=== PATIENT | male | born 1950 | race Caucasian/White ===

== ENCOUNTER 2022-03-11 16:23 | Emergency (ER) | payer MEDICARE, BC, SELFPAY ==
[2022-03-11 16:30] VITALS: BP 167/106; PULSE 85; RESP 20; TEMP 36.6; O2SAT 96; BMI 31.4
[2022-03-11 17:04] VITALS: BP 153/104; PULSE 80; RESP 18; O2SAT 94
--- NOTE | 2022-03-11 17:16 | ED.GENADULT ---
[facility] - General Adult General Date Seen: 03/11/22 Chief complaint: Altered Mental Status Stated complaint: possible slurred speach Time Seen by Provider: 03/11/22 16:28 Source: patient History of Present Illness HPI narrative: Patient is a 71-year-old male who has a history of stroke in October of this year. This gave him a facial droop and speech problems, both of which have largely resolved at this time. He has been working with speech therapy to improve his speech, and he says he is largely back to normal although his enunciation is not quite what it was before his stroke. He says that he was worked up to determine an etiology for his stroke and none was entirely determined. He has had monitoring for atrial fibrillation and has been told that none has been seen. Currently he is on a baby aspirin daily. He is here because he says for the past several weeks his has been concerned that his speech seems not as good. He does note that his is generally a worrier. He says that neither his children nor he is at all concerned about his speech. There has not been an acute change in his speech. He has not had any difficulties with word finding, has not had any current weakness or numbness, difficulties with balance or gait. 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 This passed quickly and he was back to normal. He does note that he has a tingling sensation in his 2nd 3rd and 4th fingers on the left hand, this is been present for a number of years. He is unaware of any diagnosis of carpal tunnel. He also notes that every once in a while he has an approximately 1 minute episode of dizziness where he feels vertigo or imbalance. Does tell me that he had a diagnosis of Meniere's where he had intense vertigo and abrupt hearing loss in the left ear a number of years ago. His is out of town, and apparently became very concerned while she was gone that he needed to get evaluated, so to alleviate her concern he came into the emergency department. He does not actually have any complaints or concerns of his own. He denies headache, nausea or vomiting. He has not had any chest pain, palpitations, shortness of breath. Has not had any lightheadedness or fainting. Denies current vertigo or dizziness. Denies current numbness or weakness, aside from the above-mentioned paresthesias in those left fingers which is always present. 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 Related Data Home Medications Medication Instructions Recorded Confirmed ascorbic acid (vitamin C) 1,000 mg 1 g PO DAILY 01/31/22 01/31/22 tablet aspirin 81 mg tablet,delayed 81 mg PO QDAY 01/31/22 01/31/22 release (Adult Aspirin Regimen) calcium carbonate 500 mg calcium mg PO .Bedtime 01/31/22 01/31/22 (1,250 mg) tablet magnesium oxide mg PO .Bedtime 01/31/22 01/31/22 melatonin 1 mg tablet,extended 1 tab PO .Bedtime 01/31/22 01/31/22 release metoprolol succinate 100 mg mg PO DAILY 01/31/22 01/31/22 tablet,extended release 24 hr multivitamin with iron 1 tab PO QDAY 01/31/22 01/31/22 nitroglycerin 0.4 mg sublingual 0.4 mg sublingual PRN 01/31/22 01/31/22 tablet rosuvastatin 40 mg tablet 20 mg PO Q OTHER DAY 01/31/22 01/31/22 Previous Rx's Medication Instructions Recorded COVID-19 antigen test (COVID-19 #4 ea 01/19/22 At-Home Test kit) Allergies Allergy/AdvReac Type Severity Reaction Status Date / Time rosuvastatin Allergy Mild Cannot Verified 01/31/22 08:41 take generic Crestor Tea tree oil Allergy Mild Rash Uncoded 01/31/22 08:41 Review of Systems Status of ROS: Reports: 10 or more systems reviewed and unremarkable except as noted in History and below [facility] Medical History History of methicillin resistant Staphylococcus aureus infection (2019) Surgical History History of colonoscopy (11/07/17) History of coronary artery stent placement (10/26/07) 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 Four children. He he is sexually active. Just starting to do more biking after taking much of the winter and spring off. He generally bikes for 90 min. he is hoping to do a [employer] bike trip later this summer. HABITS: No tobacco or recreational drug use reported. Alcohol use is about 2 drinks per month. Hx tobacco use Smoking Status: Former smoker How often do you have a drink containing alcohol: monthly or less AUDIT-C Alcohol total score: 1 Non-prescribed substance use: denies use Exam Narrative: Exam Narrative: Vital signs as noted above. In general, an alert, well-appearing patient. Head: Normocephalic, atraumatic. Eyes: Pupils are equal reactive. Extraocular movements are full. Conjunctivae are normal. ENT: Mucous membranes are moist. Tongue is midline. Neck: Supple without lymphadenopathy. No stridor. No bruits. Heart: Regular rate and rhythm. No murmur or rub. Lungs: Clear bilaterally. No increased work of breathing, crackles or wheezes. Abdomen: Soft and nontender. No organomegaly. Extremities: Well perfused. No edema. No calf tenderness. Pulses intact. Neurologic: Patient is alert and oriented to person and place. Speech is fluent, no dysarthria. Face is symmetric. Moves all extremities equally. Cerebellar function is intact by finger-nose testing. Fine motor testing is intact in both hands. Affect: Normal. Skin: Warm and dry. Well perfused. Const: Vital Signs, click to edit/add: Vital Signs - 24 hr 03/11/22 16:30 03/11/22 17:04 Temperature 97.9 F Pulse Rate [Pulse Oximeter] 85 80 Respiratory Rate 20 18 Blood Pressure [Le ft Upper Arm] 167/106 H 153/104 H Pulse Oximetry 96 94 Oxygen Delivery Me thod Room Air Documenting provider has reviewed patient's vital signs: yes Course Course Hospital Course: I had a long conversation with the patient about his medical history and recent symptoms. I think his very brief episodes of vertigo are unlikely to represent stroke given their short duration and isolated description of vertigo. These are more likely to be peripheral vertigo. Regarding the symptoms he had in his left hand last week, is more difficult to know what this represents. Again given how brief these symptoms were, I find it less likely that this was related to TIA, and more likely that is related to probably a peripheral nerve problem given his longstanding history of tingling in his fingers on his hand. I suspect he may have undiagnosed median nerve palsy. However, given his history of stroke, I certainly think that it is reasonable to have him follow-up with Neurology, and in the interim, I suggested that instead of a baby aspirin he takes a full-size aspirin. I do not think there is any harm at all in making that switch. We discussed whether not we should pursue any testing today. I think there is simply no benefit to doing a CT scan of the head as I do not think it will at any information to our workup. He is seen here on a weekend when I am not able to do an MRI, and in any case I am not certain that an MRI is indicated on an emergent basis given that he is asymptomatic at this time. I discussed that we could certainly do an EKG and blood work if he felt that either he or his would be reassured by some component of evaluation here, but he would just as soon not pursue any workup, and he thinks his would feel reassured just by him being evaluated. Again given that he does not have any symptoms, that his children are not at all worried by his speech, that I do not tack picker any abnormalities in his speech whatsoever, I think it is reasonable to let him go home. He has a call in to his neurology clinic and they are supposed to call him back on Sunday, which I think is reasonable. I have stressed to him that if he has any symptoms in the meantime, I would want him to return to the emergency department. Vital Signs Vital signs: Initial Vital Signs Temperature 97.9 F 03/11/22 16:30 Temperature Source Temporal Artery Scan 03/11/22 16:30 Pulse Rate 85 03/11/22 16:30 Respiratory Rate 20 03/11/22 16:30 Blood Pressure 167/106 H 03/11/22 16:30 Blood Pressure Mean 126 03/11/22 16:30 Blood Pressure Position Supine 03/11/22 16:30 Pulse Oximetry 96 08/20/22 16:30 Oxygen Delivery Method 03/11/22 16:30 Vital Signs Temperature 97.9 F 03/11/22 16:30 Pulse Rate 85 03/11/22 16:30 Respiratory Rate 20 03/11/22 16:30 Blood Pressure 167/106 H 03/11/22 16:30 Pulse Oximetry 96 03/11/22 16:30 Oxygen Delivery Method 03/11/22 16:30 Temperature 97.9 F 03/11/22 16:30 Pulse Rate 80 03/11/22 17:04 Respiratory Rate 18 03/11/22 17:04 Blood Pressure 153/104 H 03/11/22 17:04 Pulse Oximetry 94 03/11/22 17:04 Oxygen Delivery Method 03/11/22 16:30 Discharge Plan Discharge Clinical Impression: Suspected condition not found, History of stroke Patient Disposition: Home, Self-Care Condition: Stable Additional Instructions: Just to be on the safe side, increase from a baby aspirin to a full aspirin daily. Follow-up with Neurology by phone on Sunday as planned, further follow-up with them as recommended. Return to the ER at any time for new acute neurologic symptoms. Prescriptions: No Action melatonin 1 mg tablet extended release 1 tab PO .Bedtime magnesium oxide 250 mg magnesium tablet PO .Bedtime metoprolol succinate 100 mg tablet extended release 24 hr PO DAILY aspirin [Adult Aspirin Regimen] 81 mg tablet,delayed release (DR/EC) 81 mg PO QDAY rosuvastatin 40 mg tablet 20 mg PO Q OTHER DAY Rx Instructions: 1/2 tab po on odd days, and 1 tab po on even days calcium carbonate 500 mg calcium (1,250 mg) tablet PO .Bedtime ascorbic acid (vitamin C) 1,000 mg tablet 1 g PO DAILY multivitamin with iron Tablet 1 tab PO QDAY nitroglycerin 0.4 mg tablet, sublingual 0.4 mg sublingual PRN Rx Instructions: PRN CHEST PAIN, up to 3 doses. (DME) COVID-19 At-Home Test Kit See Rx Instructions .Route Qty: 4 2RF Rx Instructions: As directed Follow Up/Referrals: Holger Isaac MD [Primary Care Provider] - Stand Alone Forms: MyHealth Info Instructions
== END 2022-03-11 17:24 | disposition home or self-care (01) ==
LOC: ED 17:15
PROVIDERS: Emergency Provider Emergency Medicine; PCP Family Medicine
DX: R47.81 Slurred speech (principal); Z03.89 Encounter for observation for other suspected diseases and conditions ruled out; Z86.73 Personal history of transient ischemic attack (TIA), and cerebral infarction without residual deficits
CPT/HCPCS: 99282; 99284

== ENCOUNTER 2023-01-02 07:56 | Outpatient (CLI) | payer MEDICARE, BC, SELFPAY | END 2023-01-02 07:57 | disposition home or self-care (01) | PROVIDERS: PCP Family Medicine; Referring Provider Family Medicine; Visit Provider Family Medicine | DX: E87.5 Hyperkalemia (principal); E83.52 Hypercalcemia; D72.829 Elevated white blood cell count, unspecified | CPT/HCPCS: 80048 ==

== ENCOUNTER 2023-01-22 13:43 | Emergency (ER) | payer MEDICARE, BC, SELFPAY ==
[2023-01-22] VITALS (14 sets, daily range): BP systolic 121–162; BP diastolic 69–100; PULSE 57–96; RESP 16; TEMP 36.9; O2SAT 92–96; BMI 32.8
--- NOTE | 2023-01-22 14:09 | CRLHL7_ITS ---
For Patients: As a result of the Century Cures Act, medical imaging exams and procedure reports are released immediately into your electronic medical record. You may view this report before your referring provider. If you have questions, please contact your health care provider. Indication: MEMORY LOSS Technique: Noncontrast sagittal T1 weighted, axial FLAIR, axial T2 weighted, and axial diffusion weighted sequences are provided. Comparison: 09/06/2017 MRI Findings: Chronic lacunar infarcts the right inferior cerebellum. Chronic lacunar infarcts in the bilateral conteh radiata. The ventricles, sulci and gyri are normal size, shape and contour for age. The midline structures are centrally located with no evidence of shift. There are no suspicious intra or extra-axial fluid collections. No region of restricted diffusion. Expected flow voids in the cavernous carotids and basilar artery. Mild polypoid mucosal thickening in the left maxillary sinus. Mild mucosal thickening in the left ethmoid air cells. Impression: 1. No acute intracranial abnormality. 2. Chronic lacunar infarcts in the right inferior cerebellum, increased compared to the prior exam, and new small bilateral conteh radiata lacunar infarcts. 3. Mild parenchymal volume loss. Dictated by Avelino Herrera MD @ 01/22/2023 4:13:21 PM (Electronically Signed)
--- NOTE | 2023-01-22 14:12 | ED_ITS ---
HPI - General Adult General Chief complaint: Neuro Symptoms/Altered Deficit Stated complaint: possible stroke Time Seen by Provider: 01/22/23 13:47 Source: patient and family Mode of arrival: ambulatory Limitations: no limitations History of Present Illness HPI narrative: 72-year-old male presenting to the ED at the request of his for confusion. Patient had a stroke in October of 2021 which presented with confusion and slurred speech. Today approximately 2 hours ago he came home from work and presented with confusion when he arrived home. states that he could remember things that they had talked about previously. He did know what date was. He can not remember what they had plan to do this evening. He states that everything is back to normal now and he is not currently experiencing any symptoms. However, when asked what the day it was in triage he did say that it was Sunday, , today is Sunday. He denies headaches, blurry vision or changes in his hearing. He is hard of hearing. He denies any chest pain or shortness of breath. No recent traveling or long car rides. He denies abdominal discomfort, chest pain or diaphoresis. No shortness of breath. Denies any focal neurologic deficits including weakness of any extremity, difficulty walking. He states that right before all of this started 2 hours ago, he felt dizzy which he describes as being lightheaded. He denies any vertiginous symptoms. Dizziness has resolved. Related Data Home Medications Medication Instructions Recorded Confirmed ascorbic acid (vitamin C) 1,000 mg 1 g PO DAILY 01/31/22 12/20/22 tablet aspirin 81 mg tablet,delayed 81 mg PO QDAY 01/31/22 12/20/22 release (Adult Aspirin Regimen) calcium carbonate 500 mg calcium mg PO .Bedtime 01/31/22 12/20/22 (1,250 mg) tablet magnesium oxide mg PO .Bedtime 01/31/22 12/20/22 melatonin 1 mg tablet,extended 1 tab PO .Bedtime 01/31/22 12/20/22 release multivitamin with iron 1 tab PO QDAY 01/31/22 12/20/22 nitroglycerin 0.4 mg sublingual 0.4 mg sublingual PRN 01/31/22 12/20/22 tablet rosuvastatin 40 mg tablet 20 mg PO Q OTHER DAY 01/31/22 12/20/22 Previous Rx's Medication Instructions Recorded albuterol sulfate 90 mcg/actuation 2 inh inhalation Q6-8H PRN 12/20/22 aerosol inhaler shortness of breath or wheezing #6.7 grams azithromycin 250 mg tablet See Rx Instructions PO .COMPLEX #6 12/20/22 tabs metoprolol succinate 100 mg 100 mg PO DAILY #90 tabs 01/03/23 tablet,extended release 24 hr Allergies Allergy/AdvReac Type Severity Reaction Status Date / Time rosuvastatin Allergy Mild Cannot Verified 12/20/22 09:00 take generic Crestor Tea tree oil Allergy Mild Rash Uncoded 12/20/22 09:00 Review of Systems Status of ROS: Reports: 10 or more systems reviewed and unremarkable except as noted in History and below [facility] Medical History History of methicillin resistant Staphylococcus aureus infection (2018) ?Z86.14 - Personal history of Methicillin resistant Staphylococcus aureus infection (ICD-10) Surgical History Status post cholecystectomy (2006) ?Z90.49 - Acquired absence of other specified parts of digestive tract (ICD- 10) 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 Four children. He he is sexually active. Just starting to do more biking after taking much of the winter and spring off. He generally bikes for 90 min. he is hoping to do a [employer] bike trip later this summer. HABITS: No tobacco or recreational drug use reported. Alcohol use is about 2 drinks per month. Hx tobacco use Smoking Status: Current every day smoker How often do you have a drink containing alcohol: monthly or less AUDIT-C Alcohol total score: 1 Non-prescribed substance use: denies use Little interest or pleasure in doing things: several days Feeling down, depressed, or hopeless: several days Exam Narrative: Exam Narrative: Well-nourished well-developed patient in no acute distress. Alert and oriented. Answers questions appropriately. Mood and affect are appropriate. Thoughts are goal oriented and rational. No tangential or magical thinking noted. Patient speaks in full sentences without needing to catch their breath. HEENT: Normocephalic atraumatic. Pupils are equally round reactive to light. Extraocular muscles are intact. Conjunctivae are moist without any icterus noted. Moist mucous membranes. Posterior pharynx is normal. Neck is soft without any lymphadenopathy or thyromegaly. No masses are appreciated. Cardiovascular: Heart is regular rate and rhythm S1 and S2 are present without any murmurs. Lungs: Clear to auscultation bilaterally no wheezes rhonchi or rales are appreciated. Patient takes deep breaths without any discomfort. Abdomen: Soft and nontender nondistended with normal bowel sounds. No guarding or rebound. Abdomen is protuberant. Extremities: Bilateral lower extremities are without edema. Normal DP and PT pulses. Skin: Well perfused without any obvious rashes. Strength is 5/5 of the upper and lower extremities. Reflexes are 2+ and symmetric at the knees. Romberg sign is negative. Cranial nerves 3-12 are normal. [id number] is normal. Wljc-[id number] is normal. There is no nystagmus either horizontally or vertically. Gait is normal. NIH score is 0. Const: Vital Signs, click to edit/add: Vital Signs - 24 hr 01/22/23 13:53 01/22/23 15:42 01/22/23 15:43 Temperature 98.5 F Pulse Rate 61 62 Pulse Rate [Pulse Oximeter] 96 Respiratory Rate 16 Blood Pressure 125/70 Blood Pressure [Ri ght Upper Arm] 162/89 H Pulse Oximetry 96 94 93 Oxygen Delivery Me thod Room Air 01/22/23 15:45 01/22/23 15:52 Temperature Pulse Rate 61 58 L Pulse Rate [Pulse Oximeter] Respiratory Rate Blood Pressure 122/69 Blood Pressure [Ri ght Upper Arm] Pulse Oximetry 94 93 Oxygen Delivery Me thod Course Course Hospital Course: CT scan machine is not functioning today, therefore patient went to MRI which was a 12 minute delay from the time it was ordered to when he was able to go in. Given that his symptoms have resolved I think that the delay is acceptable. EKG, read by me, shows normal sinus rhythm with an incomplete right bundle- branch block, pulse 63. Labs were drawn in the meantime- all unremarkable. MRI showing chronic lacunar infarcts, nothing acute to explain his symptoms. His lactate was slightly elevated therefore he was given a L of normal saline. He remained asymptomatic while he was in the ER. I did speak to , stroke neurologist at [facility], recommended increasing daily aspirin and getting an MRA as an outpatient. Differential diagnosis at this time including TIA, transient global amnesia, acute confusion. Vital Signs Vital signs: Initial Vital Signs Temperature 98.5 F 01/22/23 13:53 Temperature Source Temporal Artery Scan 01/22/23 13:53 Pulse Rate 96 01/22/23 13:53 Respiratory Rate 16 01/22/23 13:53 Blood Pressure 162/89 H 01/22/23 13:53 Blood Pressure Mean 113 H 01/22/23 13:53 Pulse Oximetry 96 01/22/23 13:53 Oxygen Delivery Method Room Air 01/22/23 13:53 Vital Signs Temperature 98.5 F 01/22/23 13:53 Pulse Rate 96 01/22/23 13:53 Respiratory Rate 16 01/22/23 13:53 Blood Pressure 162/89 H 01/22/23 13:53 Pulse Oximetry 96 01/22/23 13:53 Oxygen Delivery Method Room Air 01/22/23 13:53 Temperature 98.5 F 01/22/23 13:53 Pulse Rate 58 L 01/22/23 15:52 Respiratory Rate 16 01/22/23 13:53 Blood Pressure 122/69 01/22/23 15:52 Pulse Oximetry 93 01/22/23 15:52 Oxygen Delivery Method Room Air 01/22/23 13:53 Medical Decision Making MDM Narrative Medical decision making narrative: 72-year-old male with an episode of forgetfulness and confusion. Differential diagnoses includes TIA in transient global amnesia. Will increase patient's daily aspirin to 325 mg daily. Have him follow-up primary care this week and we will recommend an MRA to be done as an outpatient. Patient will call the clinic on SundayJanuary 24 to have that set up. Medical Records Medical records reviewed: Yes I reviewed the patient's medical records Lab Data Lab results reviewed: Yes I reviewed the patient's lab results Labs: Lab Results 01/22/23 01/22/23 Range/Units 14:35 16:14 WBC 10.85 (4.50-11.00) K/uL RBC 5.84 (4.30-5.90) m/uL Hgb 17.2 (13.5-17.5) gm/dL Hct 52.5 (37.0-53.0) % MCV 90 (80-100) fL MCH 30 (26-34) pg MCHC 33 (32-36) gm/dL RDW Coeff of Harry 14.5 (11.5-15.5) % Plt Count 463 H (140-440) K/uL Neut % (Auto) 80.7 H (42.0-72.0) % Lymph % (Auto) 7.8 L (20-44) % [place] % (Auto) 5.7 (0.0-11.0) % Eos % (Auto) 4.2 (0.0-7.0) % Baso % (Auto) 0.2 (0.0-3.0) % Neut # (Auto) 8.80 H (1.7-7.0) K/uL Lymph # (Auto) 0.80 L (0.90-2.90) K/uL [place] # (Auto) 0.60 (0.00-0.90) K/UL Eos # (Auto) 0.46 (0.00-0.50) K/uL Baso # (Auto) 0.02 (0.00-0.30) K/uL Sodium 139 (135-149) mmol/L Potassium 4.1 (3.6-5.1) mmol/L Chloride 108 (96-114) mmol/L Carbon Dioxide 21 (20-32) mmol/L BUN 16 (7-30) mg/dL Creatinine 0.7 (0.5-1.5) mg/dL Estimated Creat Clear 72.16 Estimated GFR 99 ml/min Glucose 179 H (60-115) mg/dL Lactate 2.2 H (0.5-1.9) mmol/L Calcium 9.5 (8.4-10.6) mg/dL Total Bilirubin 0.8 (0.1-1.5) mg/dL Direct Bilirubin 0.1 (0.0-0.5) mg/dL AST 38 H (12-35) U/L ALT 33 (4-50) U/L Alkaline Phosphatase 64 (40-150) U/L Troponin I < 0.01 L (0.01-0.04) ng/mL Total Protein 6.4 (6.0-8.3) g/dL Albumin 3.8 (3.3-5.0) g/dL Urine Color Yellow (Yellow) Urine Appearance Clear (Clear) Urine pH 5.5 (5.0-8.5) Ur Specific [place] >= 1.030 (1.000-1.030) Urine Protein 1+ A (Negative) Urine Glucose (UA) Negative (Negative) Urine Ketones Negative (Negative) Urine Blood Negative (Negative) Urine Nitrite Negative (Negative) Urine Bilirubin Negative (Negative) Urine Urobilinogen 0.2 (0.2-1.0) Ur Leukocyte Esterase Negative (Negative) Urine RBC 2-5 A (0-2) Urine WBC 2-5 (0-5) Ur Squamous Epith Cells None (None-Few) Urine Bacteria None (None) POC Troponin I 0.02 (0.01-0.04) ng/ml Imaging Data MR Brain: Attestation: I have reviewed the pertinent imaging results. Radiologist's impression: Noncontrast sagittal T1 weighted, axial FLAIR, axial T2 weighted, and axial diffusion weighted sequences are provided. Comparison: 09/06/2017 MRI Findings: Chronic lacunar infarcts the right inferior cerebellum. Chronic lacunar infarcts in the bilateral conteh radiata. The ventricles, sulci and gyri are normal size, shape and contour for age.? The midline structures are centrally located with no evidence of shift.? There are no suspicious intra or extra-axial fluid collections.? No region of restricted diffusion.? Expected flow voids in the cavernous carotids and basilar artery. Mild polypoid mucosal thickening in the left maxillary sinus. Mild mucosal thickening in the left ethmoid air cells. Impression: 1. No acute intracranial abnormality. 2. Chronic lacunar infarcts in the right inferior cerebellum, increased compared to the prior exam, and new small bilateral conteh radiata lacunar infarcts. 3. Mild parenchymal volume loss. ECG Data Attestation: I personally reviewed and interpreted this ECG as follows: Discharge Plan Discharge Clinical Impression: Acute confusion Patient Disposition: Home, Self-Care Condition: Improved Additional Instructions: Your workup was unremarkable today. Causes of acute confusion and forgetfulness could be signs of a mini-stroke. Because of this is recommended that you increase your daily asked with the 324 mg daily. You should also call Dr. Isaac 1st thing on 01/24/2023 to set up an outpatient Brain MRA scan. The scan looks at the vasculature in the brain and was recommended by the neurologist at [facility]. Return to the ER if symptoms return in certainly if they persist. Prescriptions: No Action melatonin 1 mg tablet extended release 1 tab PO .Bedtime magnesium oxide 250 mg magnesium tablet PO .Bedtime aspirin [Adult Aspirin Regimen] 81 mg tablet,delayed release (DR/EC) 81 mg PO QDAY rosuvastatin 40 mg tablet 20 mg PO Q OTHER DAY Rx Instructions: 1/2 tab po on odd days, and 1 tab po on even days calcium carbonate 500 mg calcium (1,250 mg) tablet PO .Bedtime ascorbic acid (vitamin C) 1,000 mg tablet 1 g PO DAILY multivitamin with iron Tablet 1 tab PO QDAY nitroglycerin 0.4 mg tablet, sublingual 0.4 mg sublingual PRN Rx Instructions: PRN CHEST PAIN, up to 3 doses. azithromycin 250 mg tablet See Rx Instructions PO .COMPLEX Qty: 6 0RF Rx Instructions: For 250 mg dose pack: take 500 mg today (day 1), then 250 mg for 4 days (days 2-5) PO albuterol sulfate 90 mcg/actuation HFA aerosol inhaler 2 inh inhalation Q6-8H PRN (Reason: shortness of breath or wheezing) Qty: 6.7 0RF metoprolol succinate 100 mg tablet extended release 24 hr 100 mg PO DAILY Qty: 90 0RF Follow Up/Referrals: Holger Isaac MD [Primary Care Provider] - Stand Alone Forms: [employer] Info Instructions
[2023-01-22 14:42] LABS: Lactate* 2.2 mmol/L (0.5-1.9)
[2023-01-22 14:46] LABS: Basophils Absolute Auto 0.02 K/uL (0.00-0.30); Basophils Percent Auto 0.2 % (0.0-3.0); Eosinophils Absolute Auto 0.46 K/uL (0.00-0.50); Eosinophils Percent Auto 4.2 % (0.0-7.0); Hematocrit 52.5 % (37.0-53.0); Hemoglobin* 17.2 gm/dL (13.5-17.5); Immature Granulocytes Abs Auto 0.15 K/uL (0.00-0.30); Immature Granulocytes Pct Auto 1.4 %; Lymphocytes Percent Auto 7.8 % (20-44); Mean Corpuscular HGB Conc 33 gm/dL (32-36); Mean Corpuscular Hemoglobin 30 pg (26-34); Mean Corpuscular Volume 90 fL (80-100); Monocytes Percent Auto 5.7 % (0.0-11.0); Neutrophils Percent Auto 80.7 % (42.0-72.0); Platelet Count* 463 K/uL (140-440); RDW Coefficient of Variation % 14.5 % (11.5-15.5); Red Blood Count 5.84 m/uL (4.30-5.90); White Blood Count* 10.85 K/uL (4.50-11.00)
[2023-01-22 14:48] LABS: Slide Review Reflex No
[2023-01-22 14:50] LABS: Troponin, Point-of-Care* 0.02 ng/ml (0.01-0.04)
--- NOTE | 2023-01-22 14:59 | ED.NURSE ---
Patient to MRI at [id number]
[2023-01-22 15:35] LABS: Albumin* 3.8 g/dL (3.3-5.0); Bilirubin Direct* 0.1 mg/dL (0.0-0.5); Bilirubin Total* 0.8 mg/dL (0.1-1.5); Total Protein* 6.4 g/dL (6.0-8.3)
[2023-01-22 15:36] LABS: Alanine Aminotransferase* 33 U/L (4-50); Alkaline Phosphatase* 64 U/L (40-150); Aspartate Amino Transferase* 38 U/L (12-35); Troponin I* < 0.01 ng/mL (0.01-0.04)
[2023-01-22] MEDS: 0.9 % SODIUM CHLORIDE 1000 ml 1,000 ML IV (15:36)
[2023-01-22 15:42] LABS: Blood Urea Nitrogen* 16 mg/dL (7-30); Calcium* 9.5 mg/dL (8.4-10.6); Carbon Dioxide* 21 mmol/L (20-32); Chloride* 108 mmol/L (96-114); Creatinine* 0.7 mg/dL (0.5-1.5); Est. Creatinine Clearance* 72.16; Estimated Glomerular Filt Rate 99 ml/min; Potassium* 4.1 mmol/L (3.6-5.1); Sodium* 139 mmol/L (135-149)
[2023-01-22 15:43] LABS: Glucose* 179 mg/dL (60-115)
[2023-01-22 16:21] LABS: Appearance Urine Clear (Clear); Bilirubin Urine Negative (Negative); Blood Urine Negative (Negative); Color Urine Yellow (Yellow); Glucose Urine Negative (Negative); Ketones Urine Negative (Negative); Leukocyte Esterase Urine Negative (Negative); Nitrite Urine Negative (Negative); Protein Urine 1+ (Negative); Specific Gravity Urine >= 1.030 (1.000-1.030); Urobilinogen Urine 0.2 (0.2-1.0); pH Urine 5.5 (5.0-8.5)
== END 2023-01-22 17:53 | disposition home or self-care (01) ==
PROVIDERS: Emergency Provider Family Medicine; PCP Family Medicine
DX: R41.0 Disorientation, unspecified (principal)
CPT/HCPCS: 36415; 70551; 80048; 80076; 81001; 83605; 84484; 85025; 87086; 93005; 94761; 99284; 99285; J7030

== ENCOUNTER 2023-02-01 15:24 | Outpatient (CLI) | payer MEDICARE, BC, SELFPAY ==
--- NOTE | 2023-02-01 15:30 | CRLHL7_ITS ---
For Patients: As a result of the Century Cures Act, medical imaging exams and procedure reports are released immediately into your electronic medical record. You may view this report before your referring provider. If you have questions, please contact your health care provider. Indication: Cerebral infarction. Technique: 3D [id number] volumetric image acquisition. MIP reconstructions with rotational presentation. No IV contrast. Comparison: MR brain 01/22/2023. MRA Head 09/06/2017. Findings: Scattered mild atherosclerotic disease. No hemodynamically significant stenosis or proximal large vessel occlusion. 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 Right vertebral artery terminates into PICA. No aneurysm or arteriovenous malformation. Impression: 1. Mild atherosclerotic disease without hemodynamic significant stenosis or occlusion. 2. Anatomic variant persistent left trigeminal artery. Dictated by Dl Prieto MD @ 02/05/2023 10:28:54 AM (Electronically Signed)
== END 2023-02-01 15:25 | disposition home or self-care (01) ==
PROVIDERS: PCP Family Medicine; Visit Provider Family Medicine
DX: I63.9 Cerebral infarction, unspecified (principal); I67.2 Cerebral atherosclerosis
CPT/HCPCS: 70544

== ENCOUNTER 2023-03-06 08:51 | Outpatient (CLI) | payer MEDICARE, BC, SELFPAY | END 2023-03-06 08:52 | disposition home or self-care (01) | LOC: NFLDREF 20:42 | PROVIDERS: PCP Family Medicine; Referring Provider Family Medicine; Visit Provider Family Medicine | DX: R73.03 Prediabetes (principal); E78.5 Hyperlipidemia, unspecified | CPT/HCPCS: 80053; 80061 ==

== ENCOUNTER 2024-03-13 08:15 | Outpatient (CLI) | payer MEDICARE, BC, SELFPAY | END 2024-03-13 08:16 | disposition home or self-care (01) | LOC: NFLDREF 03-15 18:25 | PROVIDERS: PCP Family Medicine; Referring Provider Family Medicine; Visit Provider Family Medicine | DX: E78.5 Hyperlipidemia, unspecified (principal); R73.9 Hyperglycemia, unspecified | CPT/HCPCS: 80053; 80061 ==

== ENCOUNTER 2024-05-18 20:24 | Emergency (ER) | payer MEDICARE, BC, SELFPAY ==
[2024-05-18 20:26] VITALS: BP 134/73; PULSE 72; RESP 16; TEMP 36.6; O2SAT 95; BMI 31.6
[2024-05-18 20:56] LABS: Lactate Sepsis w/Reflex* 1.7 mmol/L (0.5-1.9)
[2024-05-18 21:00] LABS: Basophils Absolute Auto 0.01 K/uL (0.00-0.30); Basophils Percent Auto 0.1 % (0.0-3.0); Eosinophils Absolute Auto 0.21 K/uL (0.00-0.50); Eosinophils Percent Auto 2.5 % (0.0-7.0); Hematocrit 41.7 % (37.0-53.0); Hemoglobin* 12.6 gm/dL (13.5-17.5); Immature Granulocytes Abs Auto 0.01 K/uL (0.00-0.30); Immature Granulocytes Pct Auto 0.1 %; Lymphocytes Percent Auto 14.1 % (20-44); Mean Corpuscular HGB Conc 30 gm/dL (32-36); Mean Corpuscular Hemoglobin 27 pg (26-34); Mean Corpuscular Volume 90 fL (80-100); Monocytes Percent Auto 10.7 % (0.0-11.0); Neutrophils Percent Auto 72.5 % (42.0-72.0); Platelet Count* 223 K/uL (140-440); RDW Coefficient of Variation % 18.9 % (11.5-15.5); Red Blood Count 4.65 m/uL (4.30-5.90); White Blood Count* 8.31 K/uL (4.50-11.00)
[2024-05-18 21:02] LABS: Slide Review Reflex No
[2024-05-18 21:11] LABS: Chloride* 99 mmol/L (96-114); Sodium* 136 mmol/L (135-149)
--- NOTE | 2024-05-18 21:13 | ED_ITS ---
HPI - General Adult General Date Seen: 05/18/24 Chief complaint: Weakness Stated complaint: fall, stroke symptoms Time Seen by Provider: 05/18/24 21:00 History of Present Illness HPI narrative: 73 yo M with a past medical history of previous stroke (October 2021) which presented with slurred speech and confusion. He also has had many strokes since then. He also has a past medical history of hypertension, tobacco use, prediabetes, hyperlipidemia, and chronic leukemia (follows with [facility] for oncology or. On hydroxyurea but not on chemo), he is on apixaban, but does not have a clear history of AFib. He has a history of coronary artery disease, the stents. He has a history of bilateral knee replacements. In the ER in January 2023 he came back with neurologic symptoms. Brain MRI showed chronic lacunar infarcts but no acute changes. Per notes from Primary Care in February: is a 73 year old male here for his annual medication check. Last exam was 03/13/2023. 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 Hospitalized earlier this month from the to at [facility] to look into this further and to have a transesophageal echocardiogram. They are currently monitoring this. Planning repeat transthoracic echocardiogram 6 weeks later which is coming up. He is expecting to have surgery at some point but the timing is unclear currently. 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 Ongoing hiring difficulties followed by the need for recent lasts. Now his was just diagnosed with colon cancer undergoing treatments. Followed by [facility]. They are managing his Jardiance. He thinks torsemide is managed by Hematology. Also followed by Hematology for polycythemia vera. HPI from today: He and his were up in [facility] over the weekend, staying in a condo in [place]. He has been feeling well recently and was well yesterday. He even went for a hike on a trail. He did had an episode where he fell yesterday on the trail and apparently landed on his buttocks or hip. He has a little bit vague about exactly how he fell. He says he did not hit his head or injure his head. He apparently did not have any obvious injury at the time. His noted that he seemed normal yesterday afternoon after the hike in the fall. However yesterday evening he seemed to be a little bit drowsy than normal and may be was slurring his speech. He has been complaining of body aches and back ache today to his , but now he see here in the ER he says nothing is hurting. He says that he probably just go were out his muscles because of the hike yesterday. has noted that he has had slurred speech, has been sleeping a lot more than normal, and has been more unsteady with his gait and off on his balance. He has been having to hold onto furniture to walk. Patient denies any symptoms. He says he is feeling fine. He is upset with his for bringing him here to the ER tonight. No recent fever. No chest pain. No trouble breathing. No nausea or vomiting. Bowel movements normal. Urination has been normal. He does not think he hit his head yesterday when he fell. He had phlebotomy at [facility] a couple of weeks ago apparently did draw blood because of his chronic blood disease. Initially his admittedly this was leukemia but according to his primary care notes he must have polycythemia vera. Related Data Home Medications ?Medication ?Instructions ?Recorded ?Confirmed ascorbic acid (vitamin C) 1,000 mg 1 g PO DAILY 01/31/22 03/17/24 tablet melatonin 1 mg tablet,extended 1 tab PO .Bedtime 01/31/22 03/17/24 release multivitamin with iron 1 tab PO QDAY 01/31/22 03/17/24 torsemide 10 mg tablet 10 mg PO .QOD 03/13/23 03/17/24 empagliflozin 10 mg tablet 10 mg PO DAILY 06/26/23 03/17/24 (Jardiance) hydroxyurea 500 mg capsule 500 mg PO DAILY 06/26/23 03/17/24 apixaban PO BID 03/17/24 03/17/24 aspirin 81 mg tablet,delayed 81 mg PO QDAY 03/17/24 03/17/24 release (Adult Aspirin Regimen) Previous Rx's ?Medication ?Instructions ?Recorded Crestor 40 mg tablet (rosuvastatin) 20 - 40 mg (0.5 - 1 x 40 mg) PO 08/26/24 QDAY #135 tabs metoprolol succinate 100 mg 100 mg PO DAILY #90 tabs 03/17/24 tablet,extended release 24 hr nitroglycerin 0.4 mg sublingual 0.4 mg sublingual Q5M #25 tabs 03/17/24 tablet Allergies Allergy/AdvReac Type Severity Reaction Status Date / Time rosuvastatin Allergy Mild Cannot Verified 03/17/24 08:25 take generic Crestor Tea tree oil Allergy Mild Rash Uncoded 03/17/24 08:[address] [facility] Medical History History of methicillin resistant Staphylococcus aureus infection (2019) ?Z86.14 - Personal history of Methicillin resistant Staphylococcus aureus infection (ICD-10) Surgical History Status post cholecystectomy (2006) ?Z90.49 - Acquired absence of other specified parts of digestive tract (ICD- 10) Status post bilateral knee replacements (08/20/12) ?Z96.653 - Presence of artificial knee joint, bilateral (ICD-10) History of coronary artery stent placement (10/26/07) ?Z95.5 - Presence of coronary angioplasty implant and graft (ICD-10) History of colonoscopy (11/07/17) ?Z98.890 - Other specified postprocedural states (ICD-10) Family History Brother Diabetes Coronary artery disease Prostate cancer Father Ruptured abdominal aortic aneurysm (AAA) Mother CHF (congestive heart failure) Social History (Updated 03/17/24 @ 09:19 by Shameka Trejo~[facility], [facility]) Narrative: SOCIAL HISTORY: 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 Four children. He he is sexually active. Just starting to do more biking after taking much of the winter and spring off. He generally bikes for 90 min. he is hoping to do a [employer] bike trip later this summer. HABITS: No tobacco or recreational drug use reported. Alcohol use is about 2 drinks per month. Hx tobacco use What is your current living situation?: I presently have a place to live Problems where you live: declined to answer In the past 12 months, utilities in danger of being shut off: no In past 12 months, lack of transportation kept you from medical appts, meetings, work, or getting things needed for daily living: no In the past 12 mos, have been you worried that your food would run out before you had money to buy more?: never true In the past 12 mos, the food you bought just didn't last and you didn't have money to buy more?: never true Smoking Status: Current every day smoker Do you use any of these nicotine containing products: None Second hand tobacco smoke exposure: No How often do you have a drink containing alcohol: monthly or less AUDIT-C Alcohol total score: 1 Non-prescribed substance use: denies use How often does anyone, including family, friends and others, physically hurt you : never How often does anyone, including family, friends and others, insult or talk down to you: never How often does anyone, including family, friends and others, threaten you with harm: never How often does anyone, including family, friends and others, scream or curse at you: never Little interest or pleasure in doing things: not at all Feeling down, depressed, or hopeless: not at all Exam Narrative: Exam Narrative: Primary Survey: A- patent. Speech is slightly slurred. However he answers questions appropriately. Follows simple commands. Phonation normal. No stridor. B- breathing easily. Lung sounds clear and equal. Oxygen saturation normal on room air C- no active bleeding. Blood pressure stable. Symmetric pulses and cap refill in 4 extremities. D- he is awake but sometimes seems slow to answer questions. Sometimes he seems very vague with history and other times seems to be very cogent and sharp. No facial droop. No unilateral weakness. Constitutional: Appears well-developed and well-nourished. He is awake but seems somewhat slow to respond to questions. provides a lot of his history. HENT: Head: Atraumatic. No evidence for scalp hematoma. No depressed skull fracture, Raccoon Eyes, Russo's sign, or hemotympanum. Face normal. TMs normal Nose: Nose normal. Mouth/Throat: Oral mucosa is clear and moist. no trismus. Pharynx normal. Tonsils symmetric. No tonsillar enlargement, erythema, or exudate. Eyes: Conjunctivae normal. EOM normal. Pupils equal, round, and reactive to light. No scleral icterus. Neck: Normal range of motion. Neck supple. No tracheal deviation present. No JVD Cardiovascular: Normal rate, regular rhythm. No gallop. No friction rub. Systolic murmur heard. Symmetric radial artery pulses Pulmonary/Chest: Effort normal. No stridor. No respiratory distress. No wheezes. No rales. No rhonchi . No tenderness. Abdominal: Soft. Bowel sounds normal. No distension. No mass. No tenderness. No rebound. No guarding. Musculoskeletal: No C, T, L-spine tenderness. No midline step-off. RUE: Normal range of motion. No tenderness. No deformity LUE: Normal range of motion. No tenderness. No deformity RLE: Normal range of motion. No edema. No tenderness. No deformity LLE: Normal range of motion. No edema. No tenderness. No deformity Neurological: Mental status normal. Attention normal. Alert and oriented x3. GCS 15. Memory normal. Speech fluent. Cognition normal. Cranial Nerves intact II-XII except I did not formally test gag or visual acuity. EOMI. Palate elevates symmetrically and tongue protrudes in the midline. Strength: 5/5 trapezius on the right and left 5/5 deltoid on the right and left 5/5 biceps on the right and left 5/5 triceps on the right and left 5/5 general merchandise manager on the right and left 5/5 thumb opposition on the right and le ft 5/5 finger abduction on the right and le ft No pronator drift. 5/5 hip flexors (L3) on the right and le ft 5/5 quadriceps (L4) on the right and lef t 5/5 tibialis anterior on the right and l eft 5/5 EHL (L5) on the right and left 5/5 gastrocnemius (S1) on the right and left 5/5 hamstring on the right and left Sensation intact to light touch in both upper extremities (C4-T1) Sensation intact to light touch in Both lower extremities (L4-S1). Finger to nose and coordination normal. Gait slow and unsteady. Romberg is negative.. Skin: Skin is warm and dry. No rash noted. No pallor. Normal capillary refill. Psychiatric: He is polite to me but at at times is brisk with his . Const: Vital Signs, click to edit/add: Vital Signs - 24 hr 05/18/24 20:26 05/18/24 22:08 05/18/24 22:45 Temperature 98 F 98.0 F Pulse Rate [Pulse Oximeter] 72 73 67 Respiratory Rate 16 16 16 Blood Pressure [Ri ght Upper Arm] 134/73 124/78 117/75 Pulse Oximetry 95 98 97 Oxygen Delivery Me thod Room Air Room Air Room Air Course Course ED Course: Recheck-updated patient and . By my read head CT negative. Awaiting formal radiology interpretation. Patient still insisting on leaving as soon as possible. I was able to convince the patient and his to at least stay to get the formal radiology interpretation, labs back and provide urine sample. We discussed possible downstream workup including need for MRI. Would recommend admission for observation MRI tomorrow. Patient her rather abruptly cut me off and adamantly refuses to be admitted. Reevaluation(s) Reevaluation #1: Recheck-lab workup is unrevealing as to cause for slurred speech and ataxia. Reevaluation #2: Recheck-urinalysis normal. Formal radiology interpretation of head CT normal. I had another discussion with the patient and his . As we discussed earlier, I repeated that although head CT is negative for any acute bleed or traumatic injury from his fall yesterday, we still have concern for possible ischemic stroke causing his ataxia and slurred speech. This would not be expected to show up on a noncontrast CT. MRI is necessary to see this finding. Unfortunately, MRI is not available here in the ER [facility]. Options would be transferred to an MR capable facility [facility], admit for observation so that he can have MRI tomorrow. The patient and his do not want either of those options. They want to discharge home and want to come back for an MRI tomorrow. We discussed that I cannot make them stay here in the ER, but my recommendation would be to admit. I cannot order an outpatient MRI to be done tomorrow. They would either have to follow up with her primary care provider tomorrow to have an outpatient MRI ordered or come back to the ER and check in again to be seen a 2nd time so they can have an ER provider order an MRI. Patient is adamant about discharging home [facility]. He does not want stay in the ER. is supportive that he be discharged. The patient's says that he did not want to come to the hospital in the 1st place but came here tonight on her insistence. She agrees with me that we have concern for stroke that MRI is needed. However the patient does not want stay here tonight and she is supportive. She will watch him at home. Reevaluation #3: Recheck-nurse's report the patient's was asking if I can order an outpatient MRI. We reviewed with them that this isn't possible. They would have to check into the ER again in the morning to be seen a 2nd time in order to have an MRI in the ER. Another alternative would be for them to follow up with her primary care provider and have an outpatient MRI. Vital Signs Vital signs: Initial Vital Signs Temperature 98 F 05/18/24 20:26 Temperature Source Temporal Artery Scan 05/18/24 20:26 Pulse Rate 72 05/18/24 20:26 Respiratory Rate 16 05/18/24 20:26 Blood Pressure 134/73 05/18/24 20:26 Blood Pressure Mean 93 05/18/24 20:26 Blood Pressure Position Sitting 05/18/24 20:26 Pulse Oximetry 95 05/18/24 20:26 Oxygen Delivery Method Room Air 05/18/24 20:26 Vital Signs Temperature 98 F 05/18/24 20:26 Pulse Rate 72 05/18/24 20:26 Respiratory Rate 16 05/18/24 20:26 Blood Pressure 134/73 05/18/24 20:26 Pulse Oximetry 95 05/18/24 20:26 Oxygen Delivery Method Room Air 05/18/24 20:26 Temperature 98.0 F 05/18/24 22:45 Pulse Rate 67 05/18/24 22:45 Respiratory Rate 16 05/18/24 22:45 Blood Pressure 117/75 05/18/24 22:45 Pulse Oximetry 97 05/18/24 22:45 Oxygen Delivery Method Room Air 05/18/24 22:45 Medical Decision Making MDM Narrative Medical decision making narrative: 73-year-old male with a past medical history including previous strokes, coronary artery disease, polycythemia vera. He is currently on aspirin and El iquis. He presents to the ER today with altered mental status and slight drowsiness, unsteady gait, slurred speech. Symptoms began sometime yesterday evening and have gotten worse and persisted through the day today. 1. Trauma. He did have a ground level fall he was hiking in [facility] yesterday. He is adamant that he does not have any pain from that fall and did not hit his head. However, on anticoagulation we did send him for stat noncontrast head CT to look for bleed. Fortunately CT scan is normal. 2. Neuro. Patient does have slurred speech, unsteady gait. Concerning for possible acute ischemia. Last known well would of been yesterday afternoon. He is on Eliquis. He is not a candidate for IV thrombolysis. CT angio head and neck show occlusion of the right vertebral artery but intact flow through the left vert and distal perfusion is present. Is also mild stenosis within V4 segment of the right vertebral artery. I do think he needs MRI to look for possible acute recurrent infarct. MRI is not available here in the ER [facility] because it is Sunday evening. Would be available tomorrow morning. As above, patient is adamantly refusing to be hospitalize for evaluation and to get MRI in the morning. He is demanding he be discharged home. I expressed my concern about his gait as well as the potential for worsening of symptoms overnight if there is a cerebellar infarct. He and his are still insisting on discharge. 3. Heme. He has a history of polycythemia vera. Hemoglobin 12.6. Apparently just underwent phlebotomy at [facility] couple of weeks ago. White count and platelet count normal. He is anticoagulated with Eliquis and aspirin. 4. Renal/electrolytes. Sodium and potassium normal. Anion gap normal. BUN is 28 and creatinine 1.1. Both up slightly from labs in February. Suggest possible some component of dehydration/prerenal. 500 mL IV fluid bolus ordered. 5. Endocrine. Blood sugar 221. His sound Jardiance for diabetes. 6. Cardiac. EKG shows sinus rhythm. Nonspecific but no obvious ischemia. Troponin is negative 7. Infectious disease. No fever. No cough. Lung sounds clear. Oxygen saturation 95% on room air. No evidence for pneumonia or COVID by history or exam. Urinalysis shows no sign of infection 8. Pulmonary. Lungs are clear. VBG shows no evidence for CO2 retention. PCO2 is 54 point pH is 735 which suggest this is chronic. Lab Data Labs: Lab Results 05/18/24 05/18/24 05/18/24 Range/Units 20:52 20:53 22:35 WBC 8.31 (4.50-11.00) K/uL RBC 4.65 (4.30-5.90) m/uL Hgb 12.6 L (13.5-17.5) gm/dL Hct 41.7 (37.0-53.0) % MCV 90 (80-100) fL MCH 27 (26-34) pg MCHC 30 L (32-36) gm/dL RDW Coeff of Harry 18.9 H (11.5-15.5) % Plt Count 223 (140-440) K/uL Neut % (Auto) 72.5 H (42.0-72.0) % Lymph % (Auto) 14.1 L (20-44) % [place] % (Auto) 10.7 (0.0-11.0) % Eos % (Auto) 2.5 (0.0-7.0) % Baso % (Auto) 0.1 (0.0-3.0) % Neut # (Auto) 6.00 (1.7-7.0) K/uL Lymph # (Auto) 1.20 (0.90-2.90) K/uL [place] # (Auto) 0.90 (0.00-0.90) K/UL Eos # (Auto) 0.21 (0.00-0.50) K/uL Baso # (Auto) 0.01 (0.00-0.30) K/uL Abs Immat Gran (auto) 0.01 (0.00-0.30) K/uL Imm/Tot Granulo (auto) 0.1 % INR 1.03 (0.91-1.10) VBG pH 7.354 (7.32-7.43) VBG pCO2 54 H (40-50) mmHG VBG pO2 48.5 H (25-47) mmHG VBG HCO3 30 H (21-28) mmol/L Sodium 136 (135-149) mmol/L Potassium 4.0 (3.6-5.1) mmol/L Chloride 99 (96-114) mmol/L Carbon Dioxide 28 (20-32) mmol/L Anion Gap 9 (7-15) mEq/L BUN 28 (7-30) mg/dL Creatinine 1.1 (0.5-1.5) mg/dL Estimated Creat Clear 62.68 Estimated GFR 71 ml/min Glucose 221 H (60-115) mg/dL Lactate 1.7 (0.5-1.9) mmol/L Calcium 9.4 (8.4-10.6) mg/dL Troponin I < 0.01 L (0.01-0.04) ng/mL Urine Color Yellow (Yellow) Urine Appearance Clear (Clear) Urine pH 5.0 (5.0-8.5) Ur Specific [place] 1.010 (1.000-1.030) Urine Protein Negative (Negative) Urine Glucose (UA) 3+ A (Negative) Urine Ketones Negative (Negative) Urine Blood Negative (Negative) Urine Nitrite Negative (Negative) Urine Bilirubin Negative (Negative) Urine Urobilinogen 0.2 (0.2-1.0) Ur Leukocyte Esterase Negative (Negative) Urine RBC 0-2 (0-2) Urine WBC 0-2 (0-5) Ur Squamous Epith Cells Few (None-Few) Urine Bacteria None (None) Ethyl Alcohol < 0.01 L (0.01-0.03) % Imaging Data CT scan - head: Attestation: I have reviewed the pertinent imaging results. My impression: No acute hemorrhage. Radiologist's impression: IMPRESSION: 1. No evidence of acute infarction, intracranial hemorrhage, or mass-effect seen. CTA head and neck: Attestation: I have reviewed the pertinent imaging results. Radiologist's impression: PRELIMINARY IMPRESSION: 1. Mild stenosis is present within the V4 segment of the right vertebral artery at the level of the foramen magnum. The [place] is otherwise unremarkable with no significant stenosis, occlusion, or aneurysm identified. 2. Calcific plaque is present within the carotid bulbs bilaterally with less than 50 percent diameter stenosis. The common carotid arteries are unremarkable. 3. Occlusion of the right vertebral artery is present from the origin to approximately the C3 level where there is reconstituted flow to the skull base. The left vertebral artery and focal stenosis at its origin Discharge Plan Discharge Clinical Impression: Slurred speech, Ataxia Instructions: Weakness (ED) Additional Instructions: As we discussed, the cause for your unsteady walking, slurring speech, and weakness is not clear based on your workup so far. I recommend the stay in the hospital tonight for observation and further testing, including an MRI which can be done in the morning. However, your choosing to go home. Remember, you can come back to the ER any time tonight if you change your mind or if you get worse. Please come back to the ER tomorrow or see your regular doctor tomorrow to arrange an MRI of your brain. The MRI would show us if you have had another new stroke. Prescriptions: No Action melatonin 1 mg tablet extended release 1 tab PO .Bedtime ascorbic acid (vitamin C) 1,000 mg tablet 1 g PO DAILY multivitamin with iron Tablet 1 tab PO QDAY torsemide 10 mg tablet 10 mg PO .QOD aspirin [Adult Aspirin Regimen] 81 mg tablet,delayed release (DR/EC) 81 mg PO QDAY apixaban PO BID metoprolol succinate 100 mg tablet extended release 24 hr 100 mg PO DAILY Qty: 90 3RF nitroglycerin 0.4 mg tablet, sublingual 0.4 mg sublingual Q5M Qty: 25 0RF Rx Instructions: Up to 3 doses. rosuvastatin [Crestor] 40 mg tablet 20 - 40 mg PO QDAY Qty: 135 3RF Rx Instructions: 1/2 tab po on odd days, and 1 tab po on even days, must be trade name Crestor hydroxyurea 500 mg capsule 500 mg PO DAILY Jardiance 10 mg tablet 10 mg PO DAILY Follow Up/Referrals: Holger Isaac MD [Primary Care Provider] - Stand Alone Forms: [employer] Info Instructions
[2024-05-18 21:14] LABS: Anion Gap 9 mEq/L (7-15); Blood Urea Nitrogen* 28 mg/dL (7-30); Carbon Dioxide* 28 mmol/L (20-32); Creatinine* 1.1 mg/dL (0.5-1.5); Est. Creatinine Clearance* 62.68; Estimated Glomerular Filt Rate 71 ml/min; Glucose* 221 mg/dL (60-115)
[2024-05-18 21:15] LABS: Calcium* 9.4 mg/dL (8.4-10.6); INR 1.03 (0.91-1.10); Prothrombin Time 14.1 Seconds
--- NOTE | 2024-05-18 21:27 | CRLHL7_ITS ---
For Patients: As a result of the Cures Act, medical imaging exams and procedure reports are released immediately into your electronic medical record. You may view this report before your referring provider. If you have questions, please contact your health care provider. INDICATION: Slurred speech, ataxia TECHNIQUE: CT Head without i.v. contrast. Coronal and sagittal reformats were obtained. COMPARISON: None FINDINGS: CSF space: Unremarkable for age. Brain: No evidence of mass, acute infarction or hemorrhage is seen. No mass-effect or midline shift is seen. Mild diffuse cortical atrophy is noted. Mild symmetric calcifications of the basal ganglia are noted. Calvarium: A retention cyst or polyp is present in the inferior left maxillary sinus. The mastoid air cells are clear. The visualized orbits are grossly unremarkable. The calvarium is unremarkable in appearance with no fractures identified. IMPRESSION: 1. No evidence of acute infarction, intracranial hemorrhage, or mass-effect seen. Dictated by Omkar Kingston MD @ 05/18/2024 10:17:17 PM Please note that all CT scans at this facility use dose modulation, iterative reconstruction, and/or weight-based dosing when appropriate to reduce radiation dose to as low as reasonably achievable. Dictated by: Omkar Kingston MD @ 05/18/2024 22:17:24 (Electronically Signed)
--- NOTE | 2024-05-18 21:27 | CRLHL7_ITS ---
For Patients: As a result of the Century Cures Act, medical imaging exams and procedure reports are released immediately into your electronic medical record. You may view this report before your referring provider. If you have questions, please contact your health care provider. INDICATION: Acute stroke, slurred speech, ataxia. TECHNIQUE: CTA head with contrast bolus tracking, 3D angiographic rendering using maximum intensity projection (MIP) and images permanently archived. FINDINGS: There is scattered intracranial atherosclerotic disease. There is normal opacification of the intracranial vasculature. There is no large vessel occlusion. No aneurysm is identified. IMPRESSION: No large vessel occlusion. Please note that all CT scans at this facility use dose modulation, iterative reconstruction, and/or weight-based dosing when appropriate to reduce radiation dose to as low as reasonably achievable. Dictated by Axel Mayer MD @ 05/19/2024 7:10:29 AM (Electronically Signed)
--- NOTE | 2024-05-18 21:27 | CRLHL7_ITS ---
For Patients: As a result of the Century Cures Act, medical imaging exams and procedure reports are released immediately into your electronic medical record. You may view this report before your referring provider. If you have questions, please contact your health care provider. INDICATION: Acute stroke, slurred speech, ataxia. TECHNIQUE: CTA neck with contrast bolus tracking, 3D angiographic rendering using maximum intensity projection (MIP) and images permanently archived. FINDINGS: There is carotid atherosclerosis involving the proximal ICAs bilaterally. There is no significant carotid artery stenosis or dissection. The right vertebral artery is occluded proximally. There is a severe stenosis at the origin of the left vertebral artery. The soft tissues of the neck are within normal limits. The cervical spine is in normal alignment. Degenerative changes are noted in the cervical spine. IMPRESSION: 1. Bilateral carotid atherosclerosis without significant stenosis. 2. Proximal right vertebral artery occlusion. 3. Severe left vertebral artery origin stenosis. Please note that all CT scans at this facility use dose modulation, iterative reconstruction, and/or weight-based dosing when appropriate to reduce radiation dose to as low as reasonably achievable. Dictated by Axel Mayer MD @ 05/19/2024 7:13:41 AM (Electronically Signed)
[2024-05-18 21:53] LABS: Troponin I* < 0.01 ng/mL (0.01-0.04)
[2024-05-18 21:54] LABS: HCO3 VBG 30 mmol/L (21-28); PCO2 VBG 54 mmHG (40-50); PO2 VBG 48.5 mmHG (25-47); pH VBG 7.354 (7.32-7.43)
[2024-05-18 22:04] LABS: Ethanol* < 0.01 % (0.01-0.03)
[2024-05-18 22:08] VITALS: BP 124/78; PULSE 73; RESP 16; O2SAT 98
[2024-05-18 22:45] VITALS: BP 117/75; PULSE 67; RESP 16; TEMP 36.7; O2SAT 97
[2024-05-18 22:52] LABS: Appearance Urine Clear (Clear); Bilirubin Urine Negative (Negative); Blood Urine Negative (Negative); Color Urine Yellow (Yellow); Glucose Urine 3+ (Negative); Ketones Urine Negative (Negative); Leukocyte Esterase Urine Negative (Negative); Nitrite Urine Negative (Negative); Protein Urine Negative (Negative); Urobilinogen Urine 0.2 (0.2-1.0)
[2024-05-18 23:05] LABS: RBC Urine 0-2 (0-2); Squamous Epithelial Cell Urine Few (None-Few); WBC Urine 0-2 (0-5)
--- NOTE | 2024-05-18 23:36 | PC.NURSE ---
Pt states they are leaving, declined admit/observation. Pt still unsteady on feet, slurring words.Physician informed, discharge instructions reviewed. Pt and pt's verbalize understand of discharge instructions, when to return and calling primary physician office in the am to set up outpatient MRI.
--- NOTE | 2024-05-20 12:00 | ED.GENADULT ---
HPI - General Adult General Date Seen: 05/18/24 Chief complaint: Weakness Stated complaint: fall, stroke symptoms Time Seen by Provider: 05/18/24 21:00 History of Present Illness HPI narrative: This is an addendum to my recent ER note CT angiogram does show some carotid stenosis (less than 50%) as well as what appears to be a chronic occlusion of the right vertebral artery. I called the patient. He is actually doing better and his symptoms have resolved. Since he was here in the ER on Sunday, he came back yesterday and had an MRI that did not show any acute infarct. He will follow-up with his primary care provider, Dr. Elliott with regard to his angiogram findings. They can make sure he is on optimize medication regimen. Overall his symptoms are better. He has already called his primary care office to arrange his follow-up Related Data Home Medications ?Medication ?Instructions ?Recorded ?Confirmed ascorbic acid (vitamin C) 1,000 mg 1 g PO DAILY 01/31/22 03/17/24 tablet melatonin 1 mg tablet,extended 1 tab PO .Bedtime 01/31/22 03/17/24 release multivitamin with iron 1 tab PO QDAY 01/31/22 03/17/24 torsemide 10 mg tablet 10 mg PO .QOD 03/13/23 03/17/24 empagliflozin 10 mg tablet 10 mg PO DAILY 06/26/23 03/17/24 (Jardiance) hydroxyurea 500 mg capsule 500 mg PO DAILY 06/26/23 03/17/24 apixaban PO BID 03/17/24 03/17/24 aspirin 81 mg tablet,delayed 81 mg PO QDAY 03/17/24 03/17/24 release (Adult Aspirin Regimen) Previous Rx's ?Medication ?Instructions ?Recorded Crestor 40 mg tablet (rosuvastatin) 20 - 40 mg (0.5 - 1 x 40 mg) PO 03/17/24 QDAY #135 tabs metoprolol succinate 100 mg 100 mg PO DAILY #90 tabs 03/17/24 tablet,extended release 24 hr nitroglycerin 0.4 mg sublingual 0.4 mg sublingual Q5M #25 tabs 03/17/24 tablet Allergies Allergy/AdvReac Type Severity Reaction Status Date / Time rosuvastatin Allergy Mild Cannot Verified 03/17/24 08:25 take generic Crestor Tea tree oil Allergy Mild Rash Uncoded 03/17/24 08:25 [facility] Medical History History of methicillin resistant Staphylococcus aureus infection (2019) ?Z86.14 - Personal history of Methicillin resistant Staphylococcus aureus infection (ICD-10) Surgical History Status post cholecystectomy (2006) ?Z90.49 - Acquired absence of other specified parts of digestive tract (ICD-10) Status post bilateral knee replacements (08/20/12) ?Z96.653 - Presence of artificial knee joint, bilateral (ICD-10) History of coronary artery stent placement (10/26/07) ?Z95.5 - Presence of coronary angioplasty implant and graft (ICD-10) History of colonoscopy (11/07/17) ?Z98.890 - Other specified postprocedural states (ICD-10) Family History Brother Diabetes Coronary artery disease Prostate cancer Father Ruptured abdominal aortic aneurysm (AAA) Mother CHF (congestive heart failure) Social History Narrative: SOCIAL HISTORY: 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 He he is sexually active. Just starting to do more biking after taking much of the winter and spring off. He generally bikes for 90 min. he is hoping to do a [employer] bike trip later this summer. HABITS: No tobacco or recreational drug use reported. Alcohol use is about 2 drinks per month. Hx tobacco use What is your current living situation?: I presently have a place to live Problems where you live: declined to answer In the past 12 months, utilities in danger of being shut off: no In past 12 months, lack of transportation kept you from medical appts, meetings, work, or getting things needed for daily living: no In the past 12 mos, have been you worried that your food would run out before you had money to buy more?: never true In the past 12 mos, the food you bought just didn't last and you didn't have money to buy more?: never true Smoking Status: Current every day smoker Do you use any of these nicotine containing products: None Second hand tobacco smoke exposure: No How often do you have a drink containing alcohol: monthly or less How often do you have six or more drinks on one occasion: Never AUDIT-C Alcohol total score: 1 Non-prescribed substance use: denies use How often does anyone, including family, friends and others, physically hurt you: never How often does anyone, including family, friends and others, insult or talk down to you: never How often does anyone, including family, friends and others, threaten you with harm: never How often does anyone, including family, friends and others, scream or curse at you: never Little interest or pleasure in doing things: not at all Feeling down, depressed, or hopeless: not at all Course Vital Signs Vital signs: Initial Vital Signs Temperature 98 F 05/18/24 20:26 Temperature Source Temporal Artery Scan 05/18/24 20:26 Pulse Rate 72 05/18/24 20:26 Respiratory Rate 16 05/18/24 20:26 Blood Pressure 134/73 05/18/24 20:26 Blood Pressure Mean 93 05/18/24 20:26 Blood Pressure Position Sitting 05/18/24 20:26 Pulse Oximetry 95 05/18/24 20:26 Oxygen Delivery Method Room Air 05/18/24 20:26 Vital Signs Temperature 98 F 05/18/24 20:26 Pulse Rate 72 05/18/24 20:26 Respiratory Rate 16 05/18/24 20:26 Blood Pressure 134/73 05/18/24 20:26 Pulse Oximetry 95 05/18/24 20:26 Oxygen Delivery Method Room Air 05/18/24 20:26 Temperature 98.0 F 05/18/24 22:45 Pulse Rate 67 05/18/24 22:45 Respiratory Rate 16 05/18/24 22:45 Blood Pressure 117/75 05/18/24 22:45 Pulse Oximetry 97 05/18/24 22:45 Oxygen Delivery Method Room Air 05/18/24 22:45 Medical Decision Making Lab Data Labs: Lab Results 05/18/24 05/18/24 05/18/24 Range/Units 20:52 20:53 22:35 WBC 8.31 (4.50-11.00) K/uL RBC 4.65 (4.30-5.90) m/uL Hgb 12.6 L (13.5-17.5) gm/dL Hct 41.7 (37.0-53.0) % MCV 90 (80-100) fL MCH 27 (26-34) pg MCHC 30 L (32-36) gm/dL RDW Coeff of Harry 18.9 H (11.5-15.5) % Plt Count 223 (140-440) K/uL Neut % (Auto) 72.5 H (42.0-72.0) % Lymph % (Auto) 14.1 L (20-44) % Fergus % (Auto) 10.7 (0.0-11.0) % Eos % (Auto) 2.5 (0.0-7.0) % Baso % (Auto) 0.1 (0.0-3.0) % Neut # (Auto) 6.00 (1.7-7.0) K/uL Lymph # (Auto) 1.20 (0.90-2.90) K/uL Fergus # (Auto) 0.90 (0.00-0.90) K/UL Eos # (Auto) 0.21 (0.00-0.50) K/uL Baso # (Auto) 0.01 (0.00-0.30) K/uL Abs Immat Gran (auto) 0.01 (0.00-0.30) K/uL Imm/Tot Granulo (auto) 0.1 % INR 1.03 (0.91-1.10) VBG pH 7.354 (7.32-7.43) VBG pCO2 54 H (40-50) mmHG VBG pO2 48.5 H (25-47) mmHG VBG HCO3 30 H (21-28) mmol/L Sodium 136 (135-149) mmol/L Potassium 4.0 (3.6-5.1) mmol/L Chloride 99 (96-114) mmol/L Carbon Dioxide 28 (20-32) mmol/L Anion Gap 9 (7-15) mEq/L BUN 28 (7-30) mg/dL Creatinine 1.1 (0.5-1.5) mg/dL Estimated Creat Clear 62.68 Estimated GFR 71 ml/min Glucose 221 H (60-115) mg/dL Lactate 1.7 (0.5-1.9) mmol/L Calcium 9.4 (8.4-10.6) mg/dL Troponin I < 0.01 L (0.01-0.04) ng/mL Urine Color Yellow (Yellow) Urine Appearance Clear (Clear) Urine pH 5.0 (5.0-8.5) Ur Specific Sargeant 1.010 (1.000-1.030) Urine Protein Negative (Negative) Urine Glucose (UA) 3+ A (Negative) Urine Ketones Negative (Negative) Urine Blood Negative (Negative) Urine Nitrite Negative (Negative) Urine Bilirubin Negative (Negative) Urine Urobilinogen 0.2 (0.2-1.0) Ur Leukocyte Esterase Negative (Negative) Urine RBC 0-2 (0-2) Urine WBC 0-2 (0-5) Ur Squamous Epith Cells Few (None-Few) Urine Bacteria None (None) Ethyl Alcohol < 0.01 L (0.01-0.03) % Discharge Plan Discharge Clinical Impression: Slurred speech, Ataxia Patient Disposition: Home, Self-Care Condition: Stable Instructions: Weakness (ED) Additional Instructions: As we discussed, the cause for your unsteady walking, slurring speech, and weakness is not clear based on your workup so far. I recommend the stay in the hospital tonight for observation and further testing, including an MRI which can be done in the morning. However, your choosing to go home. Remember, you can come back to the ER any time tonight if you change your mind or if you get worse. Please come back to the ER tomorrow or see your regular doctor tomorrow to arrange an MRI of your brain. The MRI would show us if you have had another new stroke. Prescriptions: No Action melatonin 1 mg tablet extended release 1 tab PO .Bedtime ascorbic acid (vitamin C) 1,000 mg tablet 1 g PO DAILY multivitamin with iron Tablet 1 tab PO QDAY torsemide 10 mg tablet 10 mg PO .QOD aspirin [Adult Aspirin Regimen] 81 mg tablet,delayed release (DR/EC) 81 mg PO QDAY apixaban PO BID metoprolol succinate 100 mg tablet extended release 24 hr 100 mg PO DAILY Qty: 90 3RF nitroglycerin 0.4 mg tablet, sublingual 0.4 mg sublingual Q5M Qty: 25 0RF Rx Instructions: Up to 3 doses. rosuvastatin [Crestor] 40 mg tablet 20 - 40 mg PO QDAY Qty: 135 3RF Rx Instructions: 1/2 tab po on odd days, and 1 tab po on even days, must be trade name Crestor hydroxyurea 500 mg capsule 500 mg PO DAILY Jardiance 10 mg tablet 10 mg PO DAILY Follow Up/Referrals: Holger Isaac MD [Primary Care Provider] - Stand Alone Forms: [employer] Info Instructions
== END 2024-05-18 23:40 | disposition home or self-care (01) ==
PROVIDERS: Emergency Provider Emergency Medicine; PCP Family Medicine
DX: R47.81 Slurred speech (principal); R27.0 Ataxia, unspecified
CPT/HCPCS: 36415; 70450; 70496; 70498; 80048; 81001; 82077; 82803; 83605; 84484; 85025; 85610; 99281; 99284; Q9967

== ENCOUNTER 2024-05-19 12:16 | Emergency (ER) | payer MEDICARE, BC, SELFPAY ==
[2024-05-19 12:19] VITALS: BP 112/58; PULSE 67; RESP 16; TEMP 36.9; O2SAT 95; BMI 31.6
--- NOTE | 2024-05-19 12:36 | CRLHL7_ITS ---
For Patients: As a result of the Century Cures Act, medical imaging exams and procedure reports are released immediately into your electronic medical record. You may view this report before your referring provider. If you have questions, please contact your health care provider. Indication: Slurred speech. Lightheadedness. Technique: Multiplanar, multisequence MRI of the brain was performed without intravenous contrast. Comparison: CT head 05/18/2024. MRI brain 01/22/2023. Findings: The corpus callosum, pituitary gland clivus appear intact. Mild degenerative change visualized upper cervical spine. No definite restricted diffusion. No intracranial hemorrhage. The ventricles are proportionate to the cerebral sulci. The 4th ventricle appears midline. The basal cisterns appear patent. No abnormal extra-axial fluid collection identified. Mild parenchymal volume loss. Scattered T2 FLAIR hyperintense foci within the subcortical and periventricular white matter, favored to represent chronic ischemic microvascular disease. Small chronic lacunar infarct bilateral conteh radiata. There is no intracranial mass, abnormal mass-effect or midline shift identified. Major intracranial vascular flow voids appear grossly intact. Both globes are preserved. Small mucous retention cyst/polyp left maxillary sinus. Impression: 1. No acute/subacute infarct. 2. Mild chronic ischemic microvascular disease. 3. Small chronic lacunar infarcts bilateral conteh radiata and right cerebellum. Dictated by Dl Prieto MD @ 05/19/2024 2:18:25 PM (Electronically Signed)
--- NOTE | 2024-05-19 13:42 | ED.GENADULT ---
HPI - General Adult General Chief complaint: Neuro Symptoms/Altered Deficit Stated complaint: C/O stroke symptoms wants MRI Time Seen by Provider: 05/19/24 12:28 Source: patient Mode of arrival: ambulatory Limitations: no limitations History of Present Illness HPI narrative: 73-year-old male presenting to the ER today requesting a brain MRI. He patient was seen in the ER last night where he was diagnosed with a possible stroke. It was recommended that he be admitted for an MRI in the morning but patient refused and went home. Comes back this afternoon force that MRI. Patient was seen yesterday for ataxia and slurred speech. He states that his symptoms have resolved however he does feel tired. Related Data Home Medications ?Medication ?Instructions ?Recorded ?Confirmed ascorbic acid (vitamin C) 1,000 mg 1 g PO DAILY 01/31/22 03/17/24 tablet melatonin 1 mg tablet,extended 1 tab PO .Bedtime 01/31/22 03/17/24 release multivitamin with iron 1 tab PO QDAY 01/31/22 03/17/24 torsemide 10 mg tablet 10 mg PO .QOD 03/13/23 03/17/24 empagliflozin 10 mg tablet 10 mg PO DAILY 06/26/23 03/17/24 (Jardiance) hydroxyurea 500 mg capsule 500 mg PO DAILY 06/26/23 03/17/24 apixaban PO BID 03/17/24 03/17/24 aspirin 81 mg tablet,delayed 81 mg PO QDAY 03/17/24 03/17/24 release (Adult Aspirin Regimen) Previous Rx's ?Medication ?Instructions ?Recorded Crestor 40 mg tablet (rosuvastatin) 20 - 40 mg (0.5 - 1 x 40 mg) PO 03/17/24 QDAY #135 tabs metoprolol succinate 100 mg 100 mg PO DAILY #90 tabs 03/17/24 tablet,extended release 24 hr nitroglycerin 0.4 mg sublingual 0.4 mg sublingual Q5M #25 tabs 03/17/24 tablet Allergies Allergy/AdvReac Type Severity Reaction Status Date / Time rosuvastatin Allergy Mild Cannot Verified 03/17/24 08:25 take generic Crestor Tea tree oil Allergy Mild Rash Uncoded 03/17/24 08:25 Review of Systems Status of ROS: Reports: 10 or more systems reviewed and unremarkable except as noted in History and below [facility] Medical History History of methicillin resistant Staphylococcus aureus infection (2019) ?Z86.14 - Personal history of Methicillin resistant Staphylococcus aureus infection (ICD-10) Surgical History Status post cholecystectomy (2006) ?Z90.49 - Acquired absence of other specified parts of digestive tract (ICD-10) 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 Four children. He he is sexually active. Just starting to do more biking after taking much of the winter and spring off. He generally bikes for 90 min. he is hoping to do a [place] bike trip later this summer. HABITS: No tobacco or recreational drug use reported. Alcohol use is about 2 drinks per month. Hx tobacco use What is your current living situation?: I presently have a place to live Problems where you live: declined to answer In the past 12 months, utilities in danger of being shut off: no In past 12 months, lack of transportation kept you from medical appts, meetings, work, or getting things needed for daily living: no In the past 12 mos, have been you worried that your food would run out before you had money to buy more?: never true In the past 12 mos, the food you bought just didn't last and you didn't have money to buy more?: never true Smoking Status: Current every day smoker Do you use any of these nicotine containing products: None Second hand tobacco smoke exposure: No How often do you have a drink containing alcohol: monthly or less How often do you have six or more drinks on one occasion: Never AUDIT-C Alcohol total score: 1 Non-prescribed substance use: denies use How often does anyone, including family, friends and others, physically hurt you: never How often does anyone, including family, friends and others, insult or talk down to you: never How often does anyone, including family, friends and others, threaten you with harm: never How often does anyone, including family, friends and others, scream or curse at you: never Little interest or pleasure in doing things: not at all Feeling down, depressed, or hopeless: not at all Exam Narrative: Exam Narrative: Well-nourished well-developed patient in no acute distress. Alert and oriented. Answers questions appropriately. Mood and affect are appropriate. Thoughts are goal oriented and rational. No tangential or magical thinking noted. Patient speaks in full sentences without needing to catch his breath. Speech is not slurred or pressured. He has no word-finding difficulty. HEENT: Normocephalic atraumatic. Pupils are equally round reactive to light. Extraocular muscles are intact. Conjunctivae are moist without any icterus noted. Moist mucous membranes. Cardiovascular: Heart is regular rate and rhythm S1, S2 present with a systolic murmur. Lungs: Clear to auscultation bilaterally no wheezes rhonchi or rales are appreciated. Patient takes deep breaths without any discomfort. Abdomen: Soft and nontender nondistended with normal bowel sounds. Extremities: Bilateral lower extremities are without edema. Delete the Skin: Well perfused. Const: Vital Signs, click to edit/add: Vital Signs - 24 hr 05/19/24 12:19 Temperature 98.4 F Pulse Rate [Pulse Oximeter] 67 Respiratory Rate 16 Blood Pressure [Ri ght Upper Arm] 112/58 L Pulse Oximetry 95 Oxygen Delivery Me thod Room Air Course Course ED Course: I reviewed patient's notes from yesterday, his blood work and his imaging. MRI was indicated. Ordered today. This did not show any evidence of acute infarct. Vital Signs Vital signs: Initial Vital Signs Temperature 98.4 F 05/19/24 12:19 Temperature Source Temporal Artery Scan 05/19/24 12:19 Pulse Rate 67 05/19/24 12:19 Respiratory Rate 16 05/19/24 12:19 Blood Pressure 112/58 L 05/19/24 12:19 Blood Pressure Mean 76 05/19/24 12:19 Blood Pressure Position Sitting 05/19/24 12:19 Pulse Oximetry 95 05/19/24 12:19 Oxygen Delivery Method Room Air 05/19/24 12:19 Vital Signs Temperature 98.4 F 05/19/24 12:19 Pulse Rate 67 05/19/24 12:19 Respiratory Rate 16 05/19/24 12:19 Blood Pressure 112/58 L 05/19/24 12:19 Pulse Oximetry 95 05/19/24 12:19 Oxygen Delivery Method Room Air 05/19/24 12:19 Temperature 98.4 F 05/19/24 12:19 Pulse Rate 67 05/19/24 12:19 Respiratory Rate 16 05/19/24 12:19 Blood Pressure 112/58 L 05/19/24 12:19 Pulse Oximetry 95 05/19/24 12:19 Oxygen Delivery Method Room Air 05/19/24 12:19 Medical Decision Making MDM Narrative Medical decision making narrative: Discussed results with the patient and his . Patient is already on Eliquis. He does not have any neuro follow-up, but I do recommend he follow-up with his primary care provider to discuss next steps if any. He is already on Crestor as well. We discussed that he certainly can have a larger stroke given his history of strokes in the past. Imaging Data MRI - head: Attestation: I have reviewed the pertinent imaging results. Radiologist's impression: Technique: Multiplanar, multisequence MRI of the brain was performed without intravenous contrast. Comparison: CT head 05/18/2024. MRI brain 01/22/2023. Findings: The corpus callosum, pituitary gland clivus appear intact. Mild degenerative change visualized upper cervical spine. No definite restricted diffusion. No intracranial hemorrhage. The ventricles are proportionate to the cerebral sulci. The 4th ventricle appears midline. The basal cisterns appear patent. No abnormal extra-axial fluid collection identified. Mild parenchymal volume loss. Scattered T2 FLAIR hyperintense foci within the subcortical and periventricular white matter, favored to represent chronic ischemic microvascular disease. Small chronic lacunar infarct bilateral conteh radiata. There is no intracranial mass, abnormal mass-effect or midline shift identified. Major intracranial vascular flow voids appear grossly intact. Both globes are preserved. Small mucous retention cyst/polyp left maxillary sinus. Impression: 1. No acute/subacute infarct. 2. Mild chronic ischemic microvascular disease. 3. Small chronic lacunar infarcts bilateral conteh radiata and right cerebellum. Discharge Plan Discharge Clinical Impression: Stroke-like symptoms Additional Instructions: It sounds like you likely had a very small stroke given the symptoms that you are experiencing. However was not big enough for us to see on imaging. Recommend you follow-up with your primary care provider this week. Return to the ER for recurrence of stroke like symptoms. Prescriptions: No Action melatonin 1 mg tablet extended release 1 tab PO .Bedtime ascorbic acid (vitamin C) 1,000 mg tablet 1 g PO DAILY multivitamin with iron Tablet 1 tab PO QDAY torsemide 10 mg tablet 10 mg PO .QOD aspirin [Adult Aspirin Regimen] 81 mg tablet,delayed release (DR/EC) 81 mg PO QDAY apixaban PO BID metoprolol succinate 100 mg tablet extended release 24 hr 100 mg PO DAILY Qty: 90 3RF nitroglycerin 0.4 mg tablet, sublingual 0.4 mg sublingual Q5M Qty: 25 0RF Rx Instructions: Up to 3 doses. rosuvastatin [Crestor] 40 mg tablet 20 - 40 mg PO QDAY Qty: 135 3RF Rx Instructions: 1/2 tab po on odd days, and 1 tab po on even days, must be trade name Crestor hydroxyurea 500 mg capsule 500 mg PO DAILY Jardiance 10 mg tablet 10 mg PO DAILY Follow Up/Referrals: Holger Isaac MD [Primary Care Provider] - Stand Alone Forms: [employer] Info Instructions
== END 2024-05-19 14:41 | disposition home or self-care (01) ==
PROVIDERS: Emergency Provider Family Medicine; PCP Family Medicine
DX: R29.818 Other symptoms and signs involving the nervous system (principal)
CPT/HCPCS: 70551; 99284

== ENCOUNTER 2024-06-09 09:04 | Emergency (ER) | payer MEDICARE, BC, SELFPAY ==
[2024-06-09 09:12] VITALS: BP 123/73; PULSE 69; RESP 16; TEMP 36.5; O2SAT 94
--- NOTE | 2024-06-09 09:39 | ED.GENADULT ---
HPI - General Adult General Time Seen by Provider: 09:39 Date Seen: 06/09/24 Chief complaint: Neuro Symptoms/Altered Deficit Stated complaint: stroke like symptoms Time Seen by Provider: 06/09/24 09:37 Source: patient, family, RN notes reviewed and old records reviewed Mode of arrival: ambulatory Limitations: no limitations History of Present Illness HPI narrative: This 73-year-old male is accompanied by his into the ER for concerns of symptoms since yesterday. Patient reportedly went on a walk yesterday morning, she went to [facility]. When she came home from [facility], he was sitting on the couch watching football. He had difficulty getting up off the couch, could not get up by himself, fell backwards onto the couch. She noted his speech was slurred, he had difficulty swallowing yesterday. She had to assist him walking, his gait was abnormal. He admits that he took 2 5 mg THC gummies yesterday. He denies that he has used any in the interim. He has been in with stroke-like symptoms with ataxia starting on May 18. His notes at that time they had come [place] from the cabin, she subsequently found out that he was using THC then as well. He reportedly had purchased 2 bottles of THC and they are now gone. He did have MRI on May 19 showing no acute strokes. He has had a stroke in October of 2021 with facial droop and speech problems. Last brain MRI from May 19 showed no acute or subacute infarct. Mild chronic ischemic microvascular disease. Small chronic lacunar infarcts bilateral coronal radiata and right cerebellum. His notes that he seemed like he was coughing and possibly choking eating yesterday. His symptoms are improved today but not completely gone. He is on aspirin and Eliquis. Related Data Home Medications ?Medication ?Instructions ?Recorded ?Confirmed ascorbic acid (vitamin C) 1,000 mg 1 g PO DAILY 01/31/22 05/22/24 tablet melatonin 1 mg tablet,extended 1 tab PO .Bedtime 01/31/22 05/22/24 release multivitamin with iron 1 tab PO QDAY 01/31/22 05/22/24 torsemide 10 mg tablet 10 mg PO .QOD 03/13/23 06/09/24 empagliflozin 10 mg tablet 10 mg PO DAILY 06/26/23 06/09/24 (Jardiance) hydroxyurea 500 mg capsule 500 mg PO DAILY 06/26/23 05/22/24 aspirin 81 mg tablet,delayed 81 mg PO QDAY 03/17/24 06/09/24 release (Adult Aspirin Regimen) apixaban 5 mg tablet (Eliquis) 5 mg PO BID 06/09/24 06/09/24 Previous Rx's ?Medication ?Instructions ?Recorded Crestor 40 mg tablet (rosuvastatin) 20 - 40 mg (0.5 - 1 x 40 mg) PO 03/17/24 QDAY #135 tabs metoprolol succinate 100 mg 100 mg PO DAILY #90 tabs 03/17/24 tablet,extended release 24 hr nitroglycerin 0.4 mg sublingual 0.4 mg sublingual Q5M #25 tabs 03/17/24 tablet Allergies Allergy/AdvReac Type Severity Reaction Status Date / Time rosuvastatin Allergy Mild Cannot Verified 05/22/24 09:22 take generic Crestor Tea tree oil Allergy Mild Rash Uncoded 05/22/24 09:22 Review of Systems Status of ROS: Reports: 6 or more systems reviewed and unremarkable except as noted in History and below [facility] Medical History History of methicillin resistant Staphylococcus aureus infection (2019) ?Z86.14 - Personal history of Methicillin resistant Staphylococcus aureus infection (ICD-10) Surgical History Status post cholecystectomy (2006) ?Z90.49 - Acquired absence of other specified parts of digestive tract (ICD-10) 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 Four children. He he is sexually active. Just starting to do more biking after taking much of the winter and spring off. He generally bikes for 90 min. he is hoping to do a [employer] bike trip later this summer. HABITS: No tobacco or recreational drug use reported. Alcohol use is about 2 drinks per month. Hx tobacco use What is your current living situation?: I presently have a place to live Problems where you live: declined to answer In the past 12 months, utilities in danger of being shut off: no In the past 12 mos, have been you worried that your food would run out before you had money to buy more?: never true In the past 12 mos, the food you bought just didn't last and you didn't have money to buy more?: never true Smoking Status: Current every day smoker Do you use any of these nicotine containing products: None Second hand tobacco smoke exposure: No How often do you have a drink containing alcohol: monthly or less How often do you have six or more drinks on one occasion: Never AUDIT-C Alcohol total score: 1 Non-prescribed substance use: denies use How often does anyone, including family, friends and others, physically hurt you: never How often does anyone, including family, friends and others, insult or talk down to you: never How often does anyone, including family, friends and others, threaten you with harm: never How often does anyone, including family, friends and others, scream or curse at you: never Exam Const: Vital Signs, click to edit/add: Vital Signs - 24 hr 06/09/24 09:12 Temperature 97.7 F Pulse Rate [Pulse Oximeter] 69 Respiratory Rate 16 Blood Pressure [Ri ght Upper Arm] 123/73 Pulse Oximetry 94 Oxygen Delivery Me thod Room Air This 73-year-old male is up standing in the room when I come in. His gait is mildly wide-based. When he is asked to do standing on his toes, has to hang onto the lee. He is able to ambulate, no swaying with walking. Upper extremity strength is 5/5 and symmetric, no tremors. He has no dysmetria when attempting to touch is nose, is just slightly off target at the end, hits just below his nose both arms. He is alert, interactive, jokes at times. Does note is 2023. Pupils are about 6 mm and symmetric, do react to light but he does have dilated pupils baseline. He has conjugate gaze, symmetrical facial function. At times there is slight slurring of his speech but he is still understandable. Neck supple, no masses are adenopathy, do not visualize jugular venous distension. Lungs are clear, good air entry, no wheezing or crackles. CV regular rate in rhythm no murmur. Documenting provider has reviewed patient's vital signs: yes Course Course ED Course: Will obtain chest x-ray just to ensure no pulmonary complication of aspiration. He is afebrile, breathing easily, not hypoxic, doubt any aspiration pneumonia based on clinical exam. Will review with neurology but have discussed with patient and his that we cannot rule out stroke based on his symptoms. Certainly using THC can escalate symptoms for him and aggravate prior stroke symptoms. He is highly advised to not be using THC, do not feel this is safe for him. Will get baseline labs, look at EKG but sounds to be in normal sinus rhythm. Reevaluation(s) Time of Reevaluation #1: 13:00 Reevaluation #1: Have reviewed negative MRI with them, no acute stroke. Discussed that I think he needs to stop THC. He did not seem to want to completely accept that my concern that the THC was affecting his neurologic status. He Consultations Consultation #1: Have reviewed with Dr. Garcia in stroke Neurology. She agrees that she would do MR brain noncontrast. If this is negative, patient should be advised to stop his THC. She would not do subsequent workups for similar symptoms in the future, only if significant change or concern for truly new CVA symptoms. Time: 10:36 Vital Signs Vital signs: Initial Vital Signs Temperature 97.7 F 06/09/24 09:12 Temperature Source Oral 06/09/24 09:12 Pulse Rate 69 06/09/24 09:12 Respiratory Rate 16 06/09/24 09:12 Blood Pressure 123/73 06/09/24 09:12 Blood Pressure Mean 89 06/09/24 09:12 Blood Pressure Position Sitting 06/09/24 09:12 Pulse Oximetry 94 06/09/24 09:12 Oxygen Delivery Method Room Air 06/09/24 09:12 Vital Signs Temperature 97.7 F 06/09/24 09:12 Pulse Rate 69 06/09/24 09:12 Respiratory Rate 16 06/09/24 09:12 Blood Pressure 123/73 06/09/24 09:12 Pulse Oximetry 94 06/09/24 09:12 Oxygen Delivery Method Room Air 06/09/24 09:12 Temperature 97.7 F 06/09/24 09:12 Pulse Rate 69 06/09/24 09:12 Respiratory Rate 16 06/09/24 09:12 Blood Pressure 123/73 06/09/24 09:12 Pulse Oximetry 94 06/09/24 09:12 Oxygen Delivery Method Room Air 06/09/24 09:12 Medical Decision Making Lab Data Lab results reviewed: Yes I reviewed the patient's lab results Labs: Lab Results 06/09/24 Range/Units 10:05 WBC 6.74 (4.50-11.00) K/uL RBC 4.93 (4.30-5.90) m/uL Hgb 13.9 (13.5-17.5) gm/dL Hct 45.0 (37.0-53.0) % MCV 91 (80-100) fL MCH 28 (26-34) pg MCHC 31 L (32-36) gm/dL RDW Coeff of Harry 19.8 H (11.5-15.5) % Plt Count 204 (140-440) K/uL Neut % (Auto) 79.0 H (42.0-72.0) % Lymph % (Auto) 9.6 L (20-44) % [place] % (Auto) 8.9 (0.0-11.0) % Eos % (Auto) 1.9 (0.0-7.0) % Baso % (Auto) 0.3 (0.0-3.0) % Neut # (Auto) 5.30 (1.7-7.0) K/uL Lymph # (Auto) 0.60 L (0.90-2.90) K/uL [place] # (Auto) 0.60 (0.00-0.90) K/UL Eos # (Auto) 0.13 (0.00-0.50) K/uL Baso # (Auto) 0.02 (0.00-0.30) K/uL Abs Immat Gran (auto) 0.02 (0.00-0.30) K/uL Imm/Tot Granulo (auto) 0.3 % Sodium 137 (135-149) mmol/L Potassium 4.1 (3.6-5.1) mmol/L Chloride 97 (96-114) mmol/L Carbon Dioxide 29 (20-32) mmol/L Anion Gap 11 (7-15) mEq/L BUN 25 (7-30) mg/dL Creatinine 1.0 (0.5-1.5) mg/dL Estimated GFR 80 ml/min Glucose 158 H (60-115) mg/dL Calcium 10.2 (8.4-10.6) mg/dL Total Bilirubin 0.5 (0.1-1.5) mg/dL AST 28 (12-35) U/L ALT 24 (4-50) U/L Alkaline Phosphatase 73 (40-150) U/L Total Protein 7.1 (6.0-8.3) g/dL Albumin 4.4 (3.3-5.0) g/dL Imaging Data Chest x-ray: Attestation: I have reviewed the pertinent imaging results. Radiologist's impression: Patient: [facility] Facility:?[facility] Patient ID:?[id number] Site Patient ID:?[id number]. Site :?[id number] Study:?XRay-Chest 2 view-06/09/2024 10:22:11 AM Ordering Physician:Xochitl Sharma Final Report: INDICATION: Possible choking episode yesterday. TECHNIQUE: Chest 2 views. COMPARISON: CT chest dated 11/30/2022. FINDINGS: Cardiovascular and mediastinum: Heart size is normal. Unremarkable mediastinum. Redemonstrated cardiac loop recorder. Lungs and pleural spaces: Lungs are clear. No sign of infiltrate or mass. No evident radiopaque foreign bodies. No sign of pleural effusion. No pneumothorax. Bones and soft tissues: No significant findings. IMPRESSION: No acute findings. Dictated by Willis Marcano MD @ 06/09/2024 10:28:23 AM (Electronic Signature) MRI - head: Attestation: I have reviewed the pertinent imaging results. Radiologist's impression: Patient: DIEGO SIERRA Facility:?[facility] Patient ID:?[id number] Site Patient ID:?[id number]. Site :?[id number] Study:?MRI-Head WO-06/09/2024 11:37:44 AM Ordering Physician:Xochitl Sharma Final Report: Indication: Gait and speech issues. Technique: Multiplanar, multisequence MRI of the brain was performed without intravenous contrast. Comparison: MR brain 05/19/2024. Findings: Slight thinning of the corpus callosum. The pituitary gland and clivus appear intact. Orbi-xh-ihknnlao degenerative change visualized upper cervical spine. There is no restricted diffusion. No intracranial hemorrhage. The ventricles are proportionate to the cerebral sulci. The 4th ventricle appears midline. The basal cisterns appear patent. No abnormal extra-axial fluid collection identified. Mild parenchymal volume loss. Scattered T2 FLAIR hyperintense foci within the subcortical and periventricular white matter, favored to represent chronic ischemic microvascular disease. Small chronic lacunar infarcts bilateral conteh radiata and right cerebellum. There is no intracranial mass, abnormal mass-effect or midline shift identified. Impression: 1. No acute/subacute infarct. 2. Mild chronic ischemic microvascular disease. 3. Small chronic lacunar infarcts bilateral conteh radiata and right cerebellum. Dictated by Dl Prieto MD @ 06/09/2024 11:48:26 AM (Electronic Signature) ECG Data Attestation: I personally reviewed and interpreted this ECG as follows: (Normal sinus rhythm, 60 beats per minute. No acute ischemic change. Does have possible incomplete right bundle branch block.) Prior ECG tracings: available for review Discharge Plan Discharge Clinical Impression: Slurring of speech, Abnormal gait Patient Disposition: Home, Self-Care Condition: Stable Additional Instructions: I do believe that you should refrain from using THC. This certainly can increase symptoms that can be confounded for stroke. You did bring up muscle cramps which we did not do a full workup here for. I urge you to follow-up with your primary care provider as soon as possible. Do recommend that you not drive today, go home and rest. Activity Level: Activity as Tolerated Prescriptions: No Action melatonin 1 mg tablet extended release 1 tab PO .Bedtime ascorbic acid (vitamin C) 1,000 mg tablet 1 g PO DAILY multivitamin with iron Tablet 1 tab PO QDAY torsemide 10 mg tablet 10 mg PO .QOD aspirin [Adult Aspirin Regimen] 81 mg tablet,delayed release (DR/EC) 81 mg PO QDAY metoprolol succinate 100 mg tablet extended release 24 hr 100 mg PO DAILY Qty: 90 3RF nitroglycerin 0.4 mg tablet, sublingual 0.4 mg sublingual Q5M Qty: 25 0RF Rx Instructions: Up to 3 doses. rosuvastatin [Crestor] 40 mg tablet 20 - 40 mg PO QDAY Qty: 135 3RF Rx Instructions: 1/2 tab po on odd days, and 1 tab po on even days, must be trade name Crestor hydroxyurea 500 mg capsule 500 mg PO DAILY Jardiance 10 mg tablet 10 mg PO DAILY Eliquis 5 mg tablet 5 mg PO BID Follow Up/Referrals: Holger Isaac MD [Primary Care Provider] - Stand Alone [facility]: [facility] Info Instructions
--- NOTE | 2024-06-09 09:57 | CRLHL7_ITS ---
For Patients: As a result of the Cures Act, medical imaging exams and procedure reports are released immediately into your electronic medical record. You may view this report before your referring provider. If you have questions, please contact your health care provider. INDICATION: Possible choking episode yesterday. TECHNIQUE: Chest 2 views. COMPARISON: CT chest dated 11/30/2022. FINDINGS: Cardiovascular and mediastinum: Heart size is normal. Unremarkable mediastinum. Redemonstrated cardiac loop recorder. Lungs and pleural spaces: Lungs are clear. No sign of infiltrate or mass. No evident radiopaque foreign bodies. No sign of pleural effusion. No pneumothorax. Bones and soft tissues: No significant findings. IMPRESSION: No acute findings. Dictated by Willis Marcano MD @ 06/09/2024 10:28:23 AM (Electronically Signed)
[2024-06-09 10:18] LABS: Basophils Absolute Auto 0.02 K/uL (0.00-0.30); Basophils Percent Auto 0.3 % (0.0-3.0); Eosinophils Absolute Auto 0.13 K/uL (0.00-0.50); Eosinophils Percent Auto 1.9 % (0.0-7.0); Hemoglobin* 13.9 gm/dL (13.5-17.5); Immature Granulocytes Abs Auto 0.02 K/uL (0.00-0.30); Immature Granulocytes Pct Auto 0.3 %; Lymphocytes Percent Auto 9.6 % (20-44); Mean Corpuscular HGB Conc 31 gm/dL (32-36); Mean Corpuscular Hemoglobin 28 pg (26-34); Mean Corpuscular Volume 91 fL (80-100); Monocytes Percent Auto 8.9 % (0.0-11.0); Platelet Count* 204 K/uL (140-440); RDW Coefficient of Variation % 19.8 % (11.5-15.5); Red Blood Count 4.93 m/uL (4.30-5.90); White Blood Count* 6.74 K/uL (4.50-11.00)
[2024-06-09 10:21] LABS: Slide Review Reflex No
[2024-06-09 10:28] LABS: Albumin* 4.4 g/dL (3.3-5.0); Chloride* 97 mmol/L (96-114); Sodium* 137 mmol/L (135-149)
[2024-06-09 10:29] LABS: Potassium* 4.1 mmol/L (3.6-5.1)
[2024-06-09 10:31] LABS: Alanine Aminotransferase* 24 U/L (4-50); Alkaline Phosphatase* 73 U/L (40-150); Anion Gap 11 mEq/L (7-15); Aspartate Amino Transferase* 28 U/L (12-35); Bilirubin Total* 0.5 mg/dL (0.1-1.5); Blood Urea Nitrogen* 25 mg/dL (7-30); Carbon Dioxide* 29 mmol/L (20-32); Estimated Glomerular Filt Rate 80 ml/min; Glucose* 158 mg/dL (60-115); Total Protein* 7.1 g/dL (6.0-8.3)
--- NOTE | 2024-06-09 10:31 | CRLHL7_ITS ---
For Patients: As a result of the Century Cures Act, medical imaging exams and procedure reports are released immediately into your electronic medical record. You may view this report before your referring provider. If you have questions, please contact your health care provider. Indication: Gait and speech issues. Technique: Multiplanar, multisequence MRI of the brain was performed without intravenous contrast. Comparison: MR brain 05/19/2024. Findings: Slight thinning of the corpus callosum. The pituitary gland and clivus appear intact. Qftx-gh-tqavphug degenerative change visualized upper cervical spine. There is no restricted diffusion. No intracranial hemorrhage. The ventricles are proportionate to the cerebral sulci. The 4th ventricle appears midline. The basal cisterns appear patent. No abnormal extra-axial fluid collection identified. Mild parenchymal volume loss. Scattered T2 FLAIR hyperintense foci within the subcortical and periventricular white matter, favored to represent chronic ischemic microvascular disease. Small chronic lacunar infarcts bilateral conteh radiata and right cerebellum. There is no intracranial mass, abnormal mass-effect or midline shift identified. Impression: 1. No acute/subacute infarct. 2. Mild chronic ischemic microvascular disease. 3. Small chronic lacunar infarcts bilateral conteh radiata and right cerebellum. Dictated by Dl Prieto MD @ 06/09/2024 11:48:26 AM (Electronically Signed)
[2024-06-09 10:32] LABS: Calcium* 10.2 mg/dL (8.4-10.6)
== END 2024-06-09 13:34 | disposition home or self-care (01) ==
PROVIDERS: Emergency Provider Family Medicine; PCP Family Medicine
DX: R47.81 Slurred speech (principal); R26.9 Unspecified abnormalities of gait and mobility; F12.90 Cannabis use, unspecified, uncomplicated
CPT/HCPCS: 36415; 70551; 71046; 80053; 85025; 93005; 99284; 99285

== ENCOUNTER 2024-09-15 08:30 | Outpatient (RCR) | payer MEDICARE, BC, SELFPAY | END 2024-09-25 09:30 | disposition home or self-care (01) | PROVIDERS: PCP Family Medicine; Visit Provider Family Medicine | DX: S76.311A Strain of muscle, fascia and tendon of the posterior muscle group at thigh level, right thigh, initial encounter (principal); M79.651 Pain in right thigh; M76.31 Iliotibial band syndrome, right leg; M79.18 Myalgia, other site; Z51.89 Encounter for other specified aftercare | CPT/HCPCS: 97110; 97112; 97140; 97161 ==

== ENCOUNTER 2025-01-08 07:55 | Outpatient (CLI) | payer MEDICARE, BC, SELFPAY ==
--- OUTSIDE RECORDS SUMMARY | 2024-11-26 11:00 | XMS_ITS | Encounter Summary ---
Author Organization [facility] Address [address] [place] [id number] Care Team Providers Care Bundle Breaker Name Role Phone Elsewhere, Pcp Primary Care Provider Unavailabl e Reason for Referral * Outpatient (Routine) - Authorized Specialty Diagnoses / Procedures Referred By [address] Referred To Contact Hematology Oncology Daphney Davis M.D. [address] [place] [phone] Phone: tel: fax: [facility] Referral ID Status Reason Start Date Expiration Date V isits Requested Visits Authorized [id number] Authorized 11/26/2024 05/28/2026 1 1 Reason for Visit * Outpatient (Routine) - Closed Specialty Diagnoses / Procedures Referred By [address] Referred To Contact Hematology Oncology Daphney Davis M.D. [address] [place] [phone] Phone: tel: fax: [facility] Referral ID Status Reason Start Date Expiration Date Visits Re quested Visits Authorized [id number] Closed 05/29/2024 11/28/2025 1 1 Encounter Details Date Type Department Care Team (Latest Contact Info) Description 11/26/2024 11:00 AM CDT Virtual Visit Division of Hematology in [place], [place] [address] [place] [phone] Daphney Davis M.D. [address] [place] [phone] Erythrocytosis (Primary Dx) Social History Tobacco Use Types Packs/Day Years Used Date Smoking Tobacco: Former Cigarettes 0.3 51.3 0 08/06/1971 - 08/06/2015 Smokeless Tobacco: Never Alcohol Use Standard Drinks/Week Comments Yes 2 (1 standard drink = 0.6 oz pur e alcohol) [facility] Utilities Answer Date Recorded In the past 12 months has e electric, gas, oil, or water company threatened to shut off services in your home? No 04/18/2024 Humiliation, Afraid, Rape, and Kick questionnair e Answer Date Recorded Within the last year, have y ou been afraid of your partner or ex-partner? No 02/22/2024 Within the last year, have y ou been humiliated or emotionally abused in other ways by your partner or ex-partner? No Within the last year, have y ou been kicked, hit, slapped, or otherwise physically hurt by your partner or ex-partner? No 02/22/2024 Within the last year, have y ou been raped or forced to have any kind of sexual activity by your partner or ex-partner? No 02/22/2024 Social Connection and Isolat ion Panel [NHANES] Answer Date Recorded Frequency of Communication w ith Friends and Family Three times a week 02/14/2019 Frequency of Social Gatherin gs with Friends and Family Twice a week 02/14/2019 Attends [employer] Services More than 4 times per year 02/14/2019 Active Member of Clubs or Organizations Yes 02/14/2019 Attends Club or Organization Meetings More than 4 times per year 02/14/2019 Marital Status 02/14/2019 AUDIT-C Answer Date Recorded Frequency of Alcohol Consumption 2-4 times a mon 02/14/2019 Average Number of Drinks 1 or 2 019 Frequency of Binge Drinking Less than monthly Overall Financial Resource Strain (CARDIA) Answe r Date Recorded How hard is it for you to pa y for the very basics like food, housing, medical care, and heating? Not hard at all 01/20/2023 [facility] - Occupational Stress Questionnaire Answer Date Recorded Feeling of Stress Only a little 02/14/2019 Exercise Vital Sign Answer Date Recorde d On average, how many days pe r week do you engage in moderate to strenuous exercise (like a brisk walk)? 6 days 04/18/2024 On average, how many minutes do you engage in exercise at this level? 120 min 04/18/2024 Hunger Vital Sign Answer Date Recorded Within the past 12 months, y ou worried that your food would run out before you got the money to buy more. Never true 04/18/20 24 Within the past 12 months, t he food you bought just didn't last and you didn't have money to get more. Never true 04/18/2024 PRAPARE - Transportation Answer Date Re corded In the past 12 months, has l ack of transportation kept you from medical appointments or from getting medications? No 03/24 In the past 12 months, has l ack of transportation kept you from meetings, work, or from getting things needed for daily living? No 04/18/2024 Nutrition Answer Date Recorded On average, how many serving s of fruits and vegetables do you eat per day (serving size is equal to 1 cup or approximately the size of a tennis ball)? 3-5 04/18/2024 Dental Answer Date Recorded Dental: Regular Dentist Yes 01/21/20 Employment Answer Date Recorded Employment status Employed and actively working without restrictions 04/18/2024 Housing Stability Answer Date Recorded What is your living situation today? I have a [facility] place to live 04/18/2024 Education Answer Date Recorded What is the highest level of school you have completed or the highest degree you have received? 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 - 11/26/2024 11:00 AM CDT SUBJECTIVE Referring Provider: Current Providers as of 11/26/2024 PCP: Elsewhere, Pcp Care Team Provider: Holger Isaac M.D. 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 Hope and on March 20, 2023. At that time I have discussed for the differential diagnosisof his cytosis. His blood test already showed that JAK2 V617F is positive and EPO is low all consistent with myeloproliferative neoplasms specifically of polycythemia vera. Again have discussed in detail about the pathogenesis of myeloproliferative neoplasms and specifically of polycythemia vera. July 11, 2023 and he is here with his . I have asked him to come with his last time and I appreciate that she is here today. Since his visit here he has been doing a blood test every other week and underwent a phlebotomy for hematocrit more than 45. Is having a blood test every other week at [facility]. He has not having any new significant systemic symptom as well. However heis having some degree of leukocytosis and thrombocytosis. Currently he is on seven tablets of hydroxyurea (one tablet per day) per week. November 09, 2023. Since his visit here he has been requiring intermittent phlebotomy except some occasions. Unfortunately he did not increase the dose of hydroxyurea to 10 tablets per week as we have discussed before. Just started taking 10 tablets per week in the last couple of weeks maximum two weeks. And he has not experiencing any side effects. May 29, 2024. Since his visit he has been requiring intermittent phlebotomy. He is also on 10 tablets of hydroxyurea per week. He is tolerating this treatment. However unfortunately in January he was told to be off aspirin. A month later, in February he required hospitalization for about three days.During that time he was found to have a highly mobile mass on the posterior midline unless consistent with degenerative calcification. He has a planned follow-up with repeat echocardiogram in about 6-8 weeks for further discussion with regard to the mitral valve lesion. Currently he is on apixaban. Today is November 26, 2024. He has been getting intermittent phlebotomy for hematocrit more than 45. Lastone end of October 2024. Otherwise he is on 10 tablets of hydroxyurea per week and tolerating withoutany side effects. He has already and Eliquis and aspirin. He is followed by wire brush maker. He has requested for a refill for torsemide but I told him to call his wire brush maker. ALLERGIES/CONTRAINDICATIONS Reviewed and include: Allergies Allergen Reactions Atorvastatin Myalgia Tea Tree Oil Rash Rosuvastatin Other (see comments) CURRENT MEDICATIONS Reviewed and include: Medications Ordered Prior to Encounter[1] DIAGNOSTICS Reviewed and include: No results found for this or any previous visit (from the past 24 hours). ASSESSMENT / PLAN 1. 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 Obstructive sleep apnea on CPAP 3. Coronary artery disease status post stent placement 4. History of stroke 10/2021 4. 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 Phlebotomy for 500 cc of blood as long as the hematocrit is 45 and above Continue hydroxyurea 10 tablets per week (two tablets on Sunday and Sunday one aspirin p.o. daily and apixaban Follow-up with me in 12 months. He has also brought the CBC and phlebotomy record with him it is nicely done. In case he is requiring a refill of torsemide he may need to communicate with his wire brush maker Daphney Davis M.D. [1] Current Outpatient Medications on File Prior to Visit Medication Sig Dispense Refill apixaban (Eliquis) 5 mg tablet Take 1 tablet (5 mg total) by mouth 2 (two) times a day. 60 tablet 11 ascorbic acid, vitamin C, (Vitamin C) 1,000 mg tablet Take 1 g by mouth. aspirin 81 mg capsule (Patient taking differently: 1 tablet daily.) hydroxyurea (Hydrea) 500 mg capsule Take 2 capsules (1,000 mg total) by mouth 3 (three) times a week on Sunday, Sunday, and [place] AND 1 capsule (500 mg total) 4 (four) times a week. Please take 10 tablets of hydroxyurea per week. 100 capsule 3 Jardiance 10 mg tablet TAKE 1 TABLET(10 MG) BY MOUTH EVERY MORNING BEFORE BREAKFAST 90 tablet 3 melatonin 1 mg tablet extended release Take 1 tablet by mouth. (Patient not taking: Reported on 10/13/2024) metoprolol succinate (TOPROL-XL) 100 mg 24 hr tablet Take 1 tablet by mouth daily. multivitamin-iron tablet Take 1 tablet by mouth. nitroglycerin (NITROSTAT) 0.[address] under the tongue as directed. Place one tablet under tongue at first sign of angina. Repeat in 5 minutes until relief; maximum three tablets per 15 mins. rosuvastatin (CRESTOR) 40 mg tablet Take 40 mg by mouth as directed. 40 mg 1 day, and 20 mg every other day (Patient taking differently: Take 40 mg by mouth as directed. 40 mg 1 day, and 20 mg every other day- NAME BRAND) torsemide (Demadex) 10 mg tablet TAKE 1 TABLET BY MOUTH EVERY OTHER DAY 45 tablet 3 No current facility-administered medications on file prior to visit. documented in this encounter Plan of Treatment Scheduled Orders Name Type Priority Associated Diagnoses Orde r Schedule CBC with Differential, Blood Lab Routine Erythrocytosis every 4weeks for 12 Occurrences starting 11/26/2024 until 02/26/2026 CBC with Differential, Blood Lab Routine Erythrocytosis Expected: 11/26/2025 (Approximate), Expires: 02/26/2026 Uric Acid Lab Routine Erythrocytosis Expected: 11/26/2025 (Approximate), Expires: 02/26/2026 Comprehensive Metabolic Panel Lab Routine Erythrocytosis Expected: 11/26/2025 (Approximate), Expires: 02/26/2026 Scheduled Referrals Name Type Priority Associated Diagnoses Order Schedule Hematology office visit (clinic) [facility]; D; Pre-Chemo Outpatient Referral Routine Expected: 11/26/2025 (Approximate), Expires: 02/26/2026 documented as of this encounter Visit Diagnoses Diagnosis Erythrocytosis- Primary documented in this encounter Care Teams Bundle Breaker Relationship Specialty Start Date End Date Elsewhere, Pcp PCP - General Internal Medicine 02/22/24 documented as of this encounter
--- NOTE | 2025-01-08 08:00 | CRLHL7_ITS ---
For Patients: As a result of the Cures Act, medical imaging exams and procedure reports are released immediately into your electronic medical record. You may view this report before your referring provider. If you have questions, please contact your health care provider. INDICATION: Lung cancer screening. History of smoking. High risk patient with greater than 50 pack-year smoking history. TECHNIQUE: Low-dose lung cancer screening non-contrast CT chest. Dose reduction techniques were used. COMPARISON: 11/30/2022 FINDINGS: NODULES: 2 millimeter calcified subpleural nodule in the right middle lobe is unchanged.. LUNGS AND PLEURA: Mild scarring in the lung bases. MEDIASTINUM: Atherosclerotic changes. No adenopathy. CORONARY ARTERY CALCIFICATION: Severe. LIMITED UPPER ABDOMEN: Absent gallbladder. MUSCULOSKELETAL: Degenerative changes. IMPRESSION: Negative for lung cancer screening purposes. LUNG-RADS CATEGORY: 2: Benign. RADIOLOGIST RECOMMENDATION: Continue annual screening with low-dose CT chest in 12 months. Please note that all CT scans at this facility use dose modulation, iterative reconstruction, and/or weight-based dosing when appropriate to reduce radiation dose to as low as reasonably achievable. Dictated by Avelino Atkinson MD @ 01/08/2025 12:46:51 PM (Electronically Signed)
--- OUTSIDE RECORDS SUMMARY | 2025-01-09 00:33 | XMS_ITS | Encounter Summary ---
Author Organization [facility] Address [address] [place] [address] Care Team Providers Care Golf Ball Marker Name Role Phone Elsewhere, Pcp Primary Care Provider Unavailabl e Reason for Visit * Reason Comments Med Refill Encounter Details Date Type Department Care Team (Late st Contact Info) Description 11/22/2024 Refill Department of Cardiovascular Medicine in [place], [place] [address] [place] [phone] Surjit Herrera M.D. [address] [place] [phone] Med Refill Social History Tobacco Use Types Packs/Day Years Used Date Smoking Tobacco: Former Cigarettes 0.3 51.3 0 08/06/1971 - 08/06/2015 Smokeless Tobacco: Never Alcohol Use Standard Drinks/Week Comments Yes 2 (1 standard drink = 0.6 oz pur e alcohol) [facility] Utilities Answer Date Recorded In the past 12 months has e electric, gas, oil, or water [employer] threatened to shut off services in your [...] and Family Twice a week 02/14/2019 Attends Scientology Services More than 4 times per year 02/14/2019 Active Member of Clubs or Organizations Yes 02/14/2019 Attends Club or Organization Meetings More than 4 times per year 02/14/2019 Marital Status 02/14/2019 AUDIT-C Answer Date Recorded Frequency of Alcohol Consumption 2-4 times a sun02/14/2019 Average Number of Drinks 1 or 2 019 Frequency of Binge Drinking Less than monthly Overall Financial Resource Strain (CARDIA) Answe r Date Recorded How hard is it for you to pa y for the very basics like food, housing, medical care, and heating? Not hard at all 01/20/2023 [facility]ational Stress Questionnaire Answer Date [...] your living situation today? I have a [facility] place to live 04/18/2024 Education Answer Date Recorded What is the highest level of school you have completed or the highest degree you have received? 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
--- OUTSIDE RECORDS SUMMARY | 2025-01-09 00:33 | XMS_ITS | Encounter Summary ---
Author Organization [facility] Address [address] [place] [address] Care Team Providers Care Automatic Tire Tester Name Role Phone Elsewhere, Pcp Primary Care Provider Unavailabl e Encounter Details Date Type Department Care Team ([facility] st Contact Info) Description 12/22/2024 Orders Only Division of Hematology in [place], [place] [address] [place] [phone] External, Ordering ProviderElmo Social History Tobacco Use Types Packs/Day Years Used Date Smoking Tobacco: Former Cigarettes 0.3 51.3 0 08/06/1971 - 08/06/2015 Smokeless Tobacco: Never Alcohol Use Standard Drinks/Week Comments Yes 2 (1 standard drink = 0.6 oz pur e alcohol) [facility] Utilities Answer Date Recorded In the past [address] [facility] [employer], gas, oil, or water [employer] threatened to shut off services in your [...] and Family Twice a week 02/14/2019 Attends Baptism Services More than 4 times per year [...] and heating? Not hard at all 01/20/2023 [facility] - Occupational Stress [...] your living situation today? I have a [facility] place to live 04/18/2024 Education Answer Date Recorded What is the highest level of school you have completed or the highest degree you have received? 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 Gender Identity Male 01/07/2018 9:42 AM CDT Sexual Orientation Straight 01/07/2018 9: 42 AM CDT documented as of this encounter Plan of Treatment Not on file documented as of this encounter Procedures Procedure Name Priority Date/Time Associated Diagnosis Comments CBC WITH DIFFERENTIAL, B Routine 12/22/2024 9:48 AM CDT documented in this encounter Results * (ABNORMAL) CBC with Differential, Blood (12/22/2024 9:48 AM CDT) EXT Leukocytes 6.28 4.50 - 11.00 K/uL [facility] EXT RBC 4.31 4.30 - 5.90 m/uL [facility] EXT Hemoglobin 14.9 13.5 - 17.5 gm/dL [facility] EXT Hematocrit 45.1 37.0 - 53.0 % [facility] EXT MCV 105(H) 80 - 100 fL [facility] EXT Platelet Count 201 140 - 440 K/uL [facility] EXT RDW 12.8 11.5 - 15.5 % [facility] EXT Neutrophils 4.20 1.7 - 7.0 K/uL [facility] EXT Lymphocytes 1.00 0.90 - 2.90 K/uL [facility] EXT Monocytes 0.70 0.00 - 0.90 K/UL [facility] EXT Eosinophils 0.30 0.00 - 0.50 K/uL [facility] EXT Basophils 0.02 0.00 - 0.30 K/uL [facility] 12/22/2024 9:48 AM CDT Narrative [facility] - 12/22/2024 11:05 AM CDT External results verified in Extract by Hiral Andrew on 12/22/2024 at 11:[address] Davis us Ordering Provider External M.DMadhu LAB BLOOD ADD-ON Final Result [facility] [address] [place] [address] documented in this encounter Visit Diagnoses Not on filedocumented in this encounter Care Teams Automatic Tire Tester Relationship Specialty Start Date End Date Elsewhere, Pcp PCP - General Internal Medicine 02/22/24 documented as of this encounter
--- OUTSIDE RECORDS SUMMARY | 2025-01-09 00:33 | XMS_ITS | Clinical Summary ---
Author Organization [facility] Address [address] [place] [address] Care Team Providers Care Ballast Cleaning Operator Name Role Phone Elsewhere, Pcp Primary Care Provider Unavailabl e Source Comments Patient records contain information from all sites at [facility]. For routine questions regarding patient records, call [phone] during business hours, M-F 8:00 AM - 5:00 PM Central Time. Record requests for emergency care only can be directed to [phone] at any time.[facility] Allergies Active Allergy Reactions Criticality Noted Date Comments Atorvastatin Myalgia 08/10/2006 Rosuvastatin Other (see comments) Low 05/22/2024 Tea Tree Oil Rash 09/30/2008 Medications rosuvastatin (CRESTOR) 40 mg tablet Take 40 mg by mouth as directed. 40 mg 1 day, and 20 mg every other day 10/09/19 12 Active metoprolol succinate (TOPROL-XL) 100 mg 24 hr tablet Take 1 tablet by mouth daily. 02/14/20 13 Active nitroglycerin (NITROSTAT) 0.[address] under the tongue as directed. Place one tablet under tongue at first sign of angina. Repeat in 5 minutes until relief; maximum three tablets per 15 mins. 12/01/19 09 Active Jardiance 10 mg tabletIndications:C hronic Diastolic (Congestive) Heart Failure (HCC) TAKE 1 TABLET(10 MG) BY MOUTH EVERY MORNING BEFORE BREAKFAST 90 tablet 3 04/10/20 24 Active aspirin 81 mg capsule 05/23/20 24 Active ascorbic acid, vitamin C, (Vitamin C) 1,000 mg tablet Take 1 g by mouth. 02/01/20 Active melatonin 1 mg tablet extended release Take 1 tablet by mouth. 02/01/20 Active multivitamin-iron tablet Take 1 tablet by mouth. 02/01/20 22 Active hydroxyurea (Hydrea) 500 mg capsule Take 2 capsules (1,000 mg total) by mouth 3 (three) times a week on Sunday, Sunday, and Sunday AND 1 capsule (500 mg total) 4 (four) times a week. Please take 10 tablets of hydroxyurea per week. 100 capsule 3 09/01/19 25 Active torsemide (Demadex) 10 mg tabletIndications:C hronic Diastolic (Congestive) Heart Failure (HCC) TAKE 1 TABLET BY MOUTH EVERY OTHER DAY 45 tablet 3 11/25/19 25 Active apixaban (Eliquis) 5 mg tabletIndications:M ass Mitral Leaflet Anterior,Stroke Cerebrovascular Accident Personal History Take 1 tablet (5 mg total) by mouth 2 (two) times a day. 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 01/24/2023 Chronic Diastolic (Congestive) Heart Failure 11/2022 Hypertension Pulmonary 01/24/2023 Stroke Cerebrovascular Accident Personal History 01/24/2023 Stenosis Aortic Valve Acquired 01/24/2023 Regurgitation Aortic 01/24/2023 Hyperlipidemia 01/24/2023 Smoking Tobacco Use Personal History 01/07/2018 Apnea Sleep Obstructive 01/07/2018 Coronary Artery Disease (Unspecified) 01/07/2018 Encounters Date Type Department Care Team Description 12/22/2024 Orders Only Division of Hematology in [place], [place] [address] [place] [address] External, Ordering ProviderElmo 12/10/2024 Refill Department of Cardiovascular Medicine in [place], [place] [address] [place] [address] Sundeep Larsen M.D., M.S. Med Refill 11/26/2024 11:00 AM CDT Virtual Visit Division of Hematology in [place], [place] [address] [place] [phone] Daphney Davis M.D. Erythrocytosis (Primary Dx) 11/22/2024 Refill Department of Cardiovascular Medicine in [place], [place] [address] [place] [phone] Surjit Herrera M.D. Med Refill 11/10/2024 Clinical Communication Division of Hematology in [place], [place] [address] [place] [phone] Daphney Davis M.D. External Lab Entry 11/10/2024 Orders Only Division of Hematology in [address] [phone] External, Ordering ProviderElmo 10/22/2024 3:15 PM CDT Office Visit Department of Cardiovascular Medicine in [place], [place] [address] [place] [phone] Sundeep Larsen M.D., M.S. Stenosis Aortic Valve Acquired (Primary Dx); Mitral And Aortic Disease 10/21/2024 Results Follow-Up Department of Cardiovascular Medicine in [place], [place] [address] [place] [phone] Sundeep Larsen M.D., M.S. Echo Transthoracic (TTE) 10/20/2024 2:23 PM CDT - 10/20/2024 11:59 PM CDT Hospital Encounter Department of Cardiovascular Diseases in [place], [place] [address] [place] [phone] Sundeep Larsen M.D., M.S. Mass Mitral Leaflet Anterior Discharge Disposition: Home or Self Care 10/13/2024 10:45 AM CDT Clinical Communication Virtual Review in [place], [place] [address] [place] [address] Pre-visit Intake 10/13/2024 Orders Only Division of Hematology in [place], [place] [address] [place] [phone] External, Ordering ProviderElmo from Last 3 Months Immunizations Immunization Administration Dates Next Due Cholera, historical 05/07/1996 HZV (ZOSTAVAX) 06/01/2014 HepA Adult 09/13/2015,06/17/2003,04/28/1996 HepB Adult 01/13/2005,04/01/2004,06/17/2003 Influenza TIV (IM) 06/28/2024 Influenza high dose QV(65 ye ars or older) (PF) 05/31/2023 Influenza, Quadrivalent, Adj uvanted, Preservative Free 05/25/2022 PCV13 10/23/2016 PPSV23 11/12/2017,12/31/2008 RSV: respiratory syncytial v irus (ABRYSVO) bivalent vaccine 05/31/2023 RZV (SHINGRIX) 04/21/2021,01/20/2021 SARS-COV-2 (COVID-19) - MODE RNA (12 YEARS AND OLDER) Fall Seasonal 05/31/2023 SARS-COV-2 (COVID-19) - MODE RNA BIVALENT(Discontinued) 05/25/2022 Td (Adult), adsorbed 06/17/2003 Tdap 03/13/2023,08/20/2012 TyVi (inj) 06/17/2003 YF 06/17/2003 influenza trivalent high dose (HD)(PF) 7 influenza vaccine quad (FLUZ ONE/FLUARIX) (6 months and older)(PF) 09/13/2015,06/17/2003 Family History Medical History Relation Name Comments Coronary artery disease Brother Roberto Hear t valve 2022 Diabetes Brother Roberto overweight Obesity Brother Roberto overweight Coronary artery disease Father Edmund May 1973 Relation Name Status Comments Brother Roberto Shaffer Social History Tobacco Use Types Packs/Day Years Used Date Smoking Tobacco: Former Cigarettes 0.3 51.3 0 08/06/1971 - 08/06/2015 Smokeless Tobacco: Never Tobacco Cessation:Counseling Given: Not Answered Alcohol Use Standard Drinks/Week Comments Yes 2 (1 standard drink = 0.6 oz pur e alcohol) [facility] Utilities Answer Date Recorded In the past 12 months has th e [employer], gas, oil, or water [employer] threatened to shut off services in your [...] and Family Twice a week 02/14/2019 Attends Religion Services More than 4 times per year [...] and heating? Not hard at all 01/20/2023 [facility] - Occupational [...] your living situation today? I have a [facility] place to live 04/18/2024 Education Answer Date Recorded What is the highest level of school you have completed or the highest degree you have received? Some college, no degree 02/13/2019 Sex and Gender Information Value Date Recorded Sex Assigned at Male 01/07/2018 9:42 AM CDT Legal Sex Male 9:37 AM DIRECTOR RELIGIOUS EDUCATION Gender Identity Male 01/07/2018 9:42 AM CDT Sexual Orientation Straight 01/07/2018 9: 42 AM CDT Last Filed Vital Signs Vital Sign Reading Time Taken Comments Blood Pressure 138/82 10/22/2024 3:12 PM CDT Pulse 72 10/22/2024 3:12 PM CDT Temperature 35.9 C (96.6 F) 05/29/2024 10:22 AM DIRECTOR RELIGIOUS EDUCATION Respiratory Rate 16 02/23/2024 4:01 PM CDT Oxygen Saturation 95% 02/23/2024 4:01 PM CDT Inhaled Oxygen Concentration - - Weight 105 kg (230 lb 9.6 oz) 10/22/2024 3:12 PM CDT Height 175.2 cm (5' 8.98) 10/22/2024 3:12 PM CD T Body Mass Index 34.08 10/22/2024 3:12 PM CDT Plan of Treatment Health Maintenance Due Date Last Done Comments CT Colonography 1950 Cologuard 1950 Colonoscopy 1950 Colorectal Cancer Surveillance 1950 Hepatitis C Screening 1950 Depression Screening (Annual PHQ-2) 07/23/2024 COVID-19 Vaccine (7 - Mixed Product risk season) 2024 06/28/2024, 05/31/2023, 05/25/2022, Additional history exists Creatinine Level (Kidney Function Test) 05/26/2025 05/26/2024, 02/23/2024, 02/22/2024, Additional history exists Potassium Level 05/26/2025 05/26/2024, 08/0 09/2023, 02/22/2024, Additional history exists Sodium Level 05/26/2025 05/26/2024, 08/0 09/2023, 02/22/2024, Additional history exists Office Visit for Blood Pressure Check / Re-check 10/22/2025 10/22/2024 Fasting Glucose for Diabetes Screening 05/26/2027 05/26/2024, 02/23/2024, 02/23/2024, Additional history exists Lipid (Cholesterol) Screening 02/21/2029 02/22/2024, 12/21/2022, 11/13/2021, Additional history exists DTaP,Tdap,and Td Vaccines (3 - Td or Tdap) 03/13/2033 03/13/2023, 08/20/2012, 06/17/2003 Hepatitis B Vaccines Completed 01/13/2005, 04/01/2004, 06/17/2003 Hepatitis A Vaccines Completed 09/13/2015, 06/17/2003, 04/28/1996 Pneumococcal vaccine (50+ years) Completed 11/12/2017, 10/23/2016, 12/31/2008 Lung Cancer Screening Discontinued 01/08/2018 Abdominal Aortic Aneurysm (AAA) Screen Completed 02/13/2019, 10/28/2007, 08/10/2006 Zoster Vaccines Completed 04/21/2021, 07/0 07/2020, 06/01/2014 RSV vaccine - (32-36 weeks) or 60+ years Completed 05/31/2023 Influenza Vaccine Completed 06/28/2024, , 05/25/2022, Additional history exists Fall Risk Screen (Annual) Completed 10/22/2024 IPV Vaccines Aged Out No longer eligi ble based on patient's age to complete this topic Medical Devices Implanted Type Area Registered Nurse Behavioral Health Device Identifier Shelf Expiration Date Model / Serial / Lot [place] Mx Stent 3.5 X 12 - [place] [id number] Implanted:Qty: 1 on 10/26/2007 Cardiac Stent Medtronic Description:Device Manufactu rer - Medtronic USA Inc. Device Status Text - [id number]. [place] Mx Stent 3.0 X 30 - [place] [id number] Implanted:Qty: 2 on 10/26/2007 Cardiac Stent Medtronic Description:Device Manufactu rer - Medtronic [employer] Inc. Device Status Text - [id number]. Screw Xpode Lock 2.4 X 12mm - [place] [id number] Implanted:Qty: 2 on 06/21/2010 Hardware e.g. pins/screws/r ods TriMed Inc Description:Device Manufactu rer - Trimed Loomia Inc.. Device Status Text - [id number]-77703. K-Wire-Ss 4 Smooth .062 - Jimenez [id number] Implanted:Qty: 1 on 06/21/2010 Hardware e.g. pins/screws/r ods Odebolt Description:Device Manufactu rer CRI TechnologiesJoey Thomas.. Device Status Text - HARDWARE-871. Screw Xpode Lock 2.4 X 16mm - [place] [id number] Implanted:Qty: 3 on 06/21/2010 Hardware e.g. pins/screws/r ods TriMed Inc Description:Device Manufactu rer [email or web address] Loomia Inc.. Device Status Text - HARDWARE-60158. K-Wire-Ss 4 Smooth .045 - Jimenez [id number] Implanted:Qty: 3 on 06/21/2010 Hardware e.g. pins/screws/r ods Joey Description:Device Manufactu rer - Joey Thomas.. Device Status Text - HARDWARE-872. Plate Cup Xpoded 9ho X 18mm - Jimenez [id number] Implanted:Qty: 2 on 06/21/2010 Hardware e.g. pins/screws/r ods TriMed Inc Description:Device Manufactu rer [employer] Trimed Biotech Inc.. Device Status Text - HARDWARE-80051. Screw Xpode Lock 2.4 X 14mm - [place] [id number] Implanted:Qty: 1 on 06/21/2010 Hardware e.g. pins/screws/r ods TriMed Inc Description:Device Manufactu rer - Trimed Biotech Inc.. Device Status Text - HARDWARE-25752. Medtronic Lnq22 Linq Ii [id number] Implanted:10/22 (Quantity not on file) Implantable Loop Recorder Medtronic LNQ22 LINQ II / [id number] / Triathlon-Fong lla Asymmetric X3 [id number] - Jimenez [id number] Implanted:Qty: 1 on 09/30/2008 Knee Implant Other/Legacy - See Implant Description Joey Description:Device Manufactu rer - Joey Thomas.. Body Location - Other. Left. Device Status Text - KNEE [id number]. Triathlon-Femo ral Modular Peg - Jimenez [id number] Implanted:Qty: 1 on 09/30/2008 Knee Implant Other/Legacy - See Implant Description Joey Description:Device Manufactu rer - Joey Thomas.. Body Location - Other. Left. Device Status Text - KNEE [id number]. Triathlon-Tibi al Baseplate #5 - Jimenez [id number] Implanted:Qty: 1 on 09/30/2008 Knee Implant Other/Legacy - See Implant Description [place] Description:Device Manufactu rer - Joey Thomas.. Body Location - Other. Left. Device Status Text - KNEE [id number]. Triathlon-Femo ral Cemented #6 Lt - Jimenez [id number] Implanted:Qty: 1 on 09/30/2008 Knee Implant Other/Legacy - See Implant Description Joey Description:Device Manufactu rer - [place] Thomas.. Body Location - Other. Left. Device Status Text - KNEE [id number]. Triathlon-Inse rt X3 Tib 11mm #5 - Jimenez [id number] Implanted:Qty: 1 on 09/30/2008 Knee Implant Other/Legacy - See Implant Description [place]olt Description:Device Manufactu rer - Joey Thomas.. Body Location - Other. Left. Device Status Text - KNEE [id number]. Triathlon-Inse rt X3 Tib 16mm #5 - Jimenez [id number] Implanted:Qty: 1 on 12/30/2008 Knee Implant Other/Legacy - See Implant Description [place]olt Description:Device Manufactu rer - Joey Thomas.. Body Location - Other. Right. Device Status Text - KNEE [id number]. Triathlon-Femo ral Cemented #6 Rt - Jimenez [id number] Implanted:Qty: 1 on 12/30/2008 Knee Implant Other/Legacy - See Implant Description [place]olt Description:Device Manufactu rer - [place] Thomas.. Body Location - Other. Right. Device Status Text - KNEE IMP-884998. Triathlon-Tibi al Baseplate #5 - Jimenez [id number] Implanted:Qty: 1 on 12/30/2008 Knee Implant Other/Legacy - See Implant Description [place]olt Description:Device Manufactu rer - Joey Thomas.. Body Location - Other. Right. Device Status Text - KNEE [id number]. Triathlon-Femo ral Modular Peg - Jimenez [id number] Implanted:Qty: 1 on 12/30/2008 Knee Implant Other/Legacy - See Implant Description [place] Description:Device Manufactu rer - Joey Thomas.. Body Location - Other. Right. Device Status Text - KNEE IMP-[id number]. Triathlon-Fong lla Asymmetric X3 [id number] - Jimenez [id number] Implanted:Qty: 1 on 12/30/2008 Knee Implant Other/Legacy - See Implant Description Joey Description:Device Manufactu rer - Joey Thomas.. Body Location - Other. Right. Device Status Text - KNEE IMP-[id number]. Cement Bone Large - [place] [id number] Implanted:Qty: 2 on 09/30/2008 [facility] [place] Joey Description:Device Manufactu rer - Joey Thomas.. Device Status Text - MISCOTHER-2840. Cement Bone Large - [place] [id number] Implanted:Qty: 1 on 12/30/2008 [facility] [place] Joey Description:Device Manufactu rer - Joey Thomas.. Device Status Text - MISCOTHER-2840. Cement Bone Small - [place] [id number] Implanted:Qty: 1 on 12/30/2008 [facility] [place] Description:Device Manufactu rer - [place] Thomas.. Device Status Text - MISCOTHER-2841. Procedures Procedure Name Priority Date/Time Associated Diagnosis Comments CBC WITH DIFFERENTIAL, B Routine 12/22/2024 9:48 AM CDT CBC WITH DIFFERENTIAL, B Routine 11/10/2024 9:28 AM CDT (TTE) 2D ECHO DOPPLER COLOR Routine 10/20/2024 4:15 PM CDT Mass Mitral Leaflet Anterior CBC WITH DIFFERENTIAL, B Routine 10/13/2024 9:22 AM CDT COMPREHENSIVE METABOLIC PANEL, S/P Routine 05/26/2024 9:00 AM DIRECTOR RELIGIOUS EDUCATION LIPID PANEL, S Routine 02/22/2024 12:50 PM CDT Chronic Diastolic (Congestive) Heart Failure (HCC) Hyperlipidemia US AORTA RAD - Routine (most inpatients and all outpatients) 02/13/2019 3:48 PM CDT Other Specified Disorders Of Arteries And Arterioles (HCC) CT CHEST WITHOUT IV CONTRAST LUNG CANCER SCREEN LOW DOSE RAD - Routine (most inpatients and all outpatients) 01/08/2018 4:27 PM CDT Smoking Tobacco Use Personal History from Last 3 Months or Most Recently Relevant to Health Maintenance Results * (ABNORMAL) CBC with Differential, Blood (12/22/2024 9:48 AM CDT) Only the most recent of3 resultswithin the time period is included. EXT Leukocytes 6.28 4.50 - 11.00 K/uL [facility] EXT RBC 4.31 4.30 - 5.90 m/uL [facility] EXT Hemoglobin 14.9 13.5 - 17.5 gm/dL [facility] EXT Hematocrit 45.1 37.0 - 53.0 % [facility] EXT MCV 105(H) 80 - 100 fL [facility] EXT Platelet Count 201 140 - 440 K/uL [facility] EXT RDW 12.8 11.5 - 15.5 % [facility] EXT Neutrophils 4.20 1.7 - 7.0 K/uL [facility] EXT Lymphocytes 1.00 0.90 - 2.90 K/uL [facility] EXT Monocytes 0.70 0.00 - 0.90 K/UL [facility] EXT Eosinophils 0.30 0.00 - 0.50 K/uL [facility] EXT Basophils 0.02 0.00 - 0.30 K/[facility] 12/22/2024 9:48 AM CDT Narrative [facility] - 12/22/2024 11:05 AM CDT External results verified in Extract by Hiral Andrew on 12/22/2024 at 11:[address] Davis us Ordering Provider External M.D. LAB BLOOD ADD-ON Final Result [facility] [address] [place] [address], [facility] [phone] * (TTE) 2D ECHO DOPPLER COLOR (10/20/2024 4:15 PM CDT) Ejection Fraction 64 MC CV EIMS Sinus of Valsalva 44 MC CV EIMS Mid-Ascending Aorta 39 MC CV EIMS LV End-Diastolic Volume 150 MC CV EIMS LV End-Systolic Volume 54 MC CV EIMS MV E Velocity 0.9 MC CV EIMS MV A Velocity 1.3 MC CV EIMS MV E/A 0.69 MC CV EIMS MV e' Velocity Medial 0.06 MC CV EIMS MV e' Velocity Lateral 0.06 MC CV EIMS MV E/e' Medial 15 MC CV EIMS MV E/e' Lateral 15 MC CV EIMS TR Vmax 1.98 MC CV EIMS Estimated RA Pressure (Echo RAP) 10 MC CV EIMS RV Systolic Pressure (with Echo RAP) 26 MC CV EIMS AV mean gradient 19 MC CV EIMS Aortic Valve Dimensionless Index 0.41 MC CV EIMS MV mean gradient 2 MC CV EIMS Aortic Valve Systolic Peak Velocity 3 MC CV EIMS Anatomical Region Laterality Modality Echocardiography 10/20/2024 2:51 PM CDT Impressions 10/20/2024 4:21 PM CDT Echocardiogram performed per left ventricular function protocol. Last full echocardiogram performed 02/22/2024. LEFT VENTRICLE:Normal left ventricular chamber size. No regional wall motion abnormalities. Calculated 2-D biplane volumetric left ventricular ejection fraction of 64%. Indeterminate left ventricular diastolic function. RIGHT VENTRICLE:Normal right ventricular chamber size by visual estimate. Normal right ventricular systolic function. Estimated right ventricular systolic pressure 26 mmHg (right atrial pressure of 10 mmHg). ATRIA:Mildly enlarged left atrial size by visual estimate. Mildly enlarged right atrial size by visual estimate. CARDIAC VALVES:Trileaflet aortic valve. Mild-moderate calcific aortic valve stenosis. Aortic valve systolic mean Doppler gradient 19 mmHg. Mild aortic valve regurgitation. Thickened mitral valve. Trivial mitral valve regurgitation. Severely calcified mitral annulus with mobile echo-dense mass arising from the ventricular surface of the posterior mitral annulus (~7 mm in diameter). Mitral valve diastolic mean Doppler gradient 2 mmHg (heart rate 65 BPM). Normal tricuspid valve. Mild tricuspid valve regurgitation. OTHER ECHO FINDINGS:Enlarged inferior vena cava size with normal inspiratory collapse (>50%). Mildly enlarged sinus of Valsalva diameter of 44 mm. Mid ascending aorta diameter of 39 mm. No pericardial effusion. For the complete report, see the Order-Level Documents. Narrative 10/20/2024 4:21 PM CDT For the complete report, see the Order-Level Documents. Hemodynamics Heart Rate: 65 BPM Blood Pressure: 107 / 67 mmHg ECG: Sinus rhythm Final Impressions 1. Severely calcified mitral annulus with mobile echo-dense mass arising from the ventricular surface of the posterior mitral annulus (~7 mm in diameter). 2. Mild-moderate calcific aortic valve stenosis, systolic mean Doppler gradient 19 mmHg. 3. Normal left ventricular chamber size, no regional wall motion abnormalities, calculated 2-D biplane volumetric ejection fraction of 64%. 4. Mildly enlarged sinus of Valsalva diameter of 44 mm. Mild aortic valve regurgitation. 5. Normal right ventricular chamber size, normal systolic function, estimated right ventricular systolic pressure 26 mmHg (right atrial pressure of 10 mmHg). 6. Compared to the report of 04/22/2024 no significant change has occurred. Side by side comparison of images performed. Procedure Note Reynaldo Garsia M.D. - 10/20/2024 For the complete report, see the Order-Level Documents. Hemodynamics Heart Rate: 65 BPM Blood Pressure: 107 / 67 mmHg ECG: Sinus rhythm Final Impressions 1. Severely calcified mitral annulus with mobile echo-dense mass arisingfrom the ventricular surface of the posterior mitral annulus (~7 mm indiameter). 2. Mild-moderate calcific aortic valve stenosis, systolic mean Dopplergradient 19 mmHg. 3. Normal left ventricular chamber size, no regional wall motionabnormalities, calculated 2-D biplane volumetric ejection fraction of64%. 4. Mildly enlarged sinus of Valsalva diameter of 44 mm. Mild aortic valveregurgitation. 5. Normal right ventricular chamber size, normal systolic function,estimated right ventricular systolic pressure 26 mmHg (right atrialpressure of 10 mmHg). 6. Compared to the report of 04/22/2024 no significant change hasoccurred. Side by side comparison of images performed. Findings Echocardiogram performed per left ventricular function protocol. Last fullechocardiogram performed 02/22/2024. LEFT VENTRICLE:Normal left ventricular chamber size. No regional wallmotion abnormalities. Calculated 2-D biplane volumetric left ventricularejection fraction of 64%. Indeterminate left ventricular diastolicfunction. RIGHT VENTRICLE:Normal right ventricular chamber size by visual estimate.Normal right ventricular systolic function. Estimated right ventricularsystolic pressure 26 mmHg (right atrial pressure of 10 mmHg). ATRIA:Mildly enlarged left atrial size by visual estimate. Mildly enlargedright atrial size by visual estimate. CARDIAC VALVES:Trileaflet aortic valve. Mild-moderate calcific aorticvalve stenosis. Aortic valve systolic mean Doppler gradient 19 mmHg. Mildaortic valve regurgitation. Thickened mitral valve. Trivial mitral valveregurgitation. Severely calcified mitral annulus with mobile echo-densemass arising from the ventricular surface of the posterior mitral annulus(~7 mm in diameter). Mitral valve diastolic mean Doppler gradient 2 mmHg(heart rate 65 BPM). Normal tricuspid valve. Mild tricuspid valveregurgitation. OTHER ECHO FINDINGS:Enlarged inferior vena cava size with normalinspiratory collapse (>50%). Mildly enlarged sinus of Valsalva diameter of44 mm. Mid ascending aorta diameter of 39 mm. No pericardial effusion. For the complete report, see the Order-Level Documents. us Sundeep Larsen M.D., M.S. CV ECHO PROCEDURES Nita roque Result * (ABNORMAL) Comprehensive Metabolic Panel (05/26/2024 9:00 AM DIRECTOR RELIGIOUS EDUCATION) EXT Sodium 137 135 - 149 mmol/L [facility] EXT Potassium 3.9 3.6 - 5.1 mmol/L [facility] EXT Chloride 102 96 - 114 mmol/L [facility] EXT CO2 24 20 - 32 mmol/L [facility] EXT BUN (Blood Urea Nitrogen) 23 7 - 30 mg/dL [facility] EXT Creatinine 0.8 0.5 - 1.5 mg/dL [facility] EXT Estimated GFR (eGFR) 94 ml/min [facility] EXT Calcium, Total 9.4 8.4 - 10.6 mg/dL [facility] EXT Glucose 176(H) 60 - 115 mg/dL [facility] EXT Total Protein 6.7 6.0 - 8.3 g/dL [facility] EXT Albumin 4.1 3.3 - 5.0 g/dL [facility] EXT Bilirubin, Total 0.4 0.1 - 1.5 mg/dL [facility] EXT AST 28 12 - 35 U/L [facility] EXT ALT 23 4 - 50 U/L [facility] EXT Alkaline Phosphatase 73 40 - 150 U/L [facility] 05/26/2024 9:00 AM DIRECTOR RELIGIOUS EDUCATION Narrative [facility] - 05/26/2024 1:24 PM DIRECTOR RELIGIOUS EDUCATION External results verified in Extract by Sydney Pedroza on 05/26/2024 at 01:18 PM. us Ordering Provider External Elmo LAB BLOOD ADD-ON Final Result [facility] [address] [place] [address], [facility] [phone] * (ABNORMAL) Lipid Panel (02/22/2024 12:50 PM CDT) Triglycerides 234(H) mg/dL 02/22/2024 1:57 PM CDT DTL Comment: ----REFERENCE VALUE---- Normal: <150 mg/dL Borderline High: 150-199 mg/dL High: 200-499 mg/dL Very High: > or =500 mg/dL Cholesterol, Total 129 mg/dL 2023 1:57 PM CDT DTL Comment: ----REFERENCE VALUE---- Desirable: < 200 mg/dL Borderline High: 200 - 239 mg/dL High: > or = 240 mg/dL Cholesterol, LDL, Calculated 46 mg/dL 02/22/2024 1:57 PM CDT DTL Comment: ----REFERENCE VALUE---- Desirable: <100 mg/dL Above Desirable: 100-129 mg/dL Borderline High: 130-159 mg/dL High: 160-189 mg/dL Very High: >=190 mg/dL ----ADDITIONAL INFORMATION---- LDL cholesterol calculated using the Murray/NIH equation. Cholesterol, HDL, S 46 >=40 mg/dL 02/22/2024 1:57 PM CDT DTL Cholesterol, Non-HDL, Calculated 83 mg/dL 02/22/2024 1:57 PM CDT DTL Comment: ----REFERENCE VALUE---- Desirable: <130 mg/dL Above Desirable: 130-159 mg/dL Borderline High: 160-189 mg/dL High: 190-219 mg/dL Very High: > or =220 mg/dL Fasting (8 HR or more) No 02/22/2024 12:50 PM CDT DTL Blood (Blood, Venous) 02/22/2024 12:50 PM CDT 02/22/2024 1:31 PM CDT Surjit Herrera M.D. LAB BLOOD ADD-ON Final Resu lt [facility] [address] [place] [address], [facility] [address] [place] [address] * US Aorta (02/13/2019 3:48 PM CDT) Anatomical Region Laterality Modality Abdomen, Pelvis, Ultrasound RST LOS, Ultrasound ARZ LOS, Ultrasound FLA LOS N/A Ultrasound 02/13/2019 3:51 PM CDT Impressions 02/13/2019 3:51 PM CDT No evidence for aortic aneurysm. Narrative 02/13/2019 3:51 PM CDT EXAM: US AORTA COMPARISON: 10/28/2007 FINDINGS: Scattered minimal atherosclerotic change within a normal caliber aortoiliac system. Aorta: AP - 2.3 cm Aorta: Trans - 2.5 cm Right SIRIA: AP - 1.6 cm Right SIRIA Trans - 1.5 cm Left SIRIA: AP - 1.5 cm Left SIRIA Trans - 1.3 cm Procedure Note Bernardo Simental M.D. - 02/13/2019 EXAM: US AORTA COMPARISON: 10/28/2007 FINDINGS: Scattered minimal atherosclerotic change within a normalcaliber aortoiliac system. Aorta: AP - 2.3 cm Aorta: Trans - 2.5 cm Right SIRIA: AP - 1.6 cm Right SIRIA Trans - 1.5 cm Left SIRIA: AP - 1.5 cm Left SIRIA Trans - 1.3 cm IMPRESSION: No evidence for aortic aneurysm. Kasey Cerrato M.D., Pharm.D. IMG US PROCEDURE S Final Result * CT Chest Lung Cancer Screen Low Dose without IV Contrast (01/08/2018 4:27 PM CDT) Anatomical Region Laterality Modality Chest, Thoracic RST LOS N/A Computed Tomography 01/08/2018 4:29 PM CDT Impressions 01/08/2018 4:44 PM CDT IMPRESSION: 1. Negative for screening purposes. Tiny nodule(s) identified with very low likelihood of malignancy. 2. Dilated ascending aorta. RECOMMENDATION: Follow up with next annual low-dose CT in 12 months. ASSESSMENT: Lung-RADS 2S: Benign appearance or behavior Narrative 01/08/2018 4:44 PM CDT EXAM: CT CHEST WITHOUT IV CONTRAST LUNG CANCER SCREEN LOW DOSE COMPARISON: None Screening Visit: Baseline. FINDINGS: Solid nodules (indeterminate) - Solid nodule size, lobe, series and image- (1) 1 mm, right upper lobe image 128; Part solid/sub-solid, pure ground glass nodules - None. Coronary artery calcification - Severe Emphysema - Mild Other potentially significant abnormality - Dilated ascending aorta measuring 44 mm. Peripheral and basal predominant groundglass and reticular opacities possibly representing early/mild interstitial fibrosis. These fibrotic opacities include a small opacity in the left base that likely represents nodular atelectasis. Prone imaging may be helpful in follow-up. Incidental findings - Mitral annulus calcification. Gastric diverticulum. Splenic granuloma. Procedure Note Eliezer Hines M.D. - 01/08/2018 EXAM: CT CHEST WITHOUT IV CONTRAST LUNG CANCER SCREEN LOW DOSE COMPARISON: None Screening Visit: Baseline. FINDINGS: Solid nodules (indeterminate) - Solid nodule size, lobe, series and image- (1) 1 mm, right upper lobe image 128; Part solid/sub-solid, pure ground glass nodules - None. Coronary artery calcification - Severe Emphysema - Mild Other potentially significant abnormality - Dilated ascending aortameasuring 44 mm. Peripheral and basal predominant groundglass and reticularopacities possibly representing early/mild interstitial fibrosis. These fibroticopacities include a small opacity in the left base that likely represents nodular atelectasis. Prone imaging may be helpful in follow-up. Incidental findings - Mitral annulus calcification. Gastricdiverticulum. Splenic granuloma. IMPRESSION: 1. Negative for screening purposes. Tiny nodule(s) identified with verylow likelihood of malignancy. 2. Dilated ascending aorta. RECOMMENDATION: Follow up with next annual low-dose CT in 12 months. ASSESSMENT: Lung-RADS 2S: Benign appearance or behavior Andrew Rogers M.D. IMG CT PROCEDURES Final Result from Last 3 Months or Most Recently Relevant to Health Maintenance Insurance [facility] MEDICARE Advance Directives For more information, please contact: [phone] * Full Code (Latest Code Status on File) Date Activated Date Inactivated Comments 02/22/2024 6:52 PM 02/23/2024 6:55 PM Question Answer Comments Full Code: Discussed Care Teams Ballast Cleaning Operator Relationship Specialty Start Date End Date Elsewhere, Pcp PCP - General Internal Medicine 02/22/24
--- OUTSIDE RECORDS SUMMARY | 2025-01-09 00:33 | XMS_ITS | Encounter Summary ---
Author Organization [facility] Address [address] [place] [address] Care Team Providers Care County Demonstrator Name Role Phone Elsewhere, Pcp Primary Care Provider Unavailabl e Reason for Referral * Outpatient (Routine) - Closed Specialty Diagnoses / Procedures Referred By Abiola t Referred To Contact Otorhinolaryngology Diagnoses Hearing Exam Holger Isaac M.D. Phone: tel: fax: [facility] [employer] Referral ID Status Reason Start Date Expiration Date Visits Re quested Visits Authorized [id number] Closed 08/08/2018 08/08/2019 1 1 REWINDER Encounter Details Date Type Department Care Team (Late st Contact Info) Description 08/08/2018 [facility] [address] [place] [address] Holger Isaac M.D. [address] [place] [phone] Hearing Exam (Primary Dx) Social History Tobacco Use Types Packs/Day Years Used Date Smoking Tobacco: Unknown Sex and Gender Information Value Date Recorded Sex Assigned at Male 01/07/2018 9:42 AM CDT Legal Sex Male 9:37 AM YARN REWINDER Gender Identity Male 01/07/2018 9:42 AM CDT Sexual Orientation Straight 01/07/2018 9: 42 AM CDT documented as of this encounter Plan of Treatment Scheduled Referrals Name Type Priority Associated Diagnoses Orde r Schedule Audiology Referral Outpatient Referral Routine Hearing Exam Expected: 08/08/2018 (Approximate), Expires: 08/08/2021 documented as of this encounter Visit Diagnoses Diagnosis Hearing Exam- Primary documented in this encounter Additional Health Concerns Infection Onset Date Last Indicated Resolved Time COVID19 Pending 06/25/2020 06/25/2020 06/26/2020 1 :14 PM YARN REWINDER COVID19 Pending 06/28/2020 06/28/2020 06/28/2020 8 :36 PM YARN REWINDER documented as of this encounter Care Teams County Demonstrator Relationship Specialty Start Date End Date Elsewhere, Pcp PCP - General Internal Medicine 02/22/24 documented as of this encounter
--- OUTSIDE RECORDS SUMMARY | 2025-01-09 00:33 | XMS_ITS | Encounter Summary ---
Author Organization [facility] Address [address] [place] [address] Care Team Providers Care Oracle Programmer Name Role Phone Elsewhere, Pcp Primary Care Provider Unavailabl e Reason for Referral * Outpatient (Routine) - Closed Specialty Diagnoses / Procedures Referred By Abiola street Referred To Contact Cardiovascular Disease Diagnoses Other Specified Disorders Of Arteries And Arterioles Holger Isaac M.D. Phone: tel: fax: [facility] Referral ID Status Reason Start Date Expiration Date Visits Re quested Visits Authorized [id number] Closed 12/11/2018 12/11/2019 1 1 Encounter Details Date Type Department Care Team (Late st Contact Info) Description 12/11/2018 [facility] [address] [place] [address] Holger Isaac M.D. [address] [place] [phone] Coronary Artery Disease (Unspecified) (Primary Dx); Other Specified Disorders Of Arteries And Arterioles (HCC) Social History Tobacco Use Types Packs/Day Years Used Date Smoking Tobacco: Unknown Sex and Gender Information Value Date Recorded Sex Assigned at Male 01/07/2018 9:42 AM CDT Legal Sex Male 9:37 AM MAORI PHYSIOTHERAPIST Gender Identity Male 01/07/2018 9:42 AM CDT Sexual Orientation Straight 01/07/2018 9: 42 AM CDT documented as of this encounter Plan of Treatment Scheduled Referrals Name Type Priority Associated Diagnoses Order Schedule Cardiovascular Diseases Referral Outpatient Referral Routine Other Specified Disorders Of Arteries And Arterioles (HCC) Expected: 12/11/2018 (Approximate), Expires: 12/11/2021 documented as of this encounter Visit Diagnoses Diagnosis Coronary Artery Disease (Unspecified)- Primary Other Specified Disorders Of Arteries And Arterioles documented in this encounter Additional Health Concerns Infection Onset Date Last Indicated Resolved Time COVID19 Pending 06/25/2020 06/25/2020 06/26/2020 1 :14 PM MAORI PHYSIOTHERAPIST COVID19 Pending 06/28/2020 06/28/2020 06/28/2020 8 :36 PM MAORI PHYSIOTHERAPIST documented as of this encounter Care Teams Oracle Programmer Relationship Specialty Start Date End Date Elsewhere, Pcp PCP - General Internal Medicine 02/22/24 documented as of this encounter
--- OUTSIDE RECORDS SUMMARY | 2025-01-09 00:34 | XMS_ITS | Clinical Summary ---
Author Organization [facility] Address [address] [place] [address] Care Team Providers Care Bundle Shaker Name Role Phone Holger Isaac MD Primary Care Provider [phone] Allergies Active Allergy Reactions Criticality Noted Date Comments Atorvastatin Myalgia 08/10/2006 Tea Tree Oil Rash 09/30/2008 Medications NITROQUICK 0.4 MG SUBLINGUAL TABIndications:C hest pain, unspecified Give 1 tab sublingual now - repeat after 5 minutes if still in pain 2 0 8 Active rosuvastatin (CRESTOR) 40 mg tablet Take 40 mg by mouth every morning. 1 tablet 0 4 Active aspirin (ECOTRIN) 81 mg enteric coated tablet Take 81 mg by mouth every morning. Active metoprolol succinate (Toprol XL) 50 mg sustained-releas e tablet Take 1 Tablet (50 mg) by mouth once daily. 0 2 Active hydroxyurea (HYDREA) 500 mg capsuleIndicatio ns:Polycythemia vera (HC) Take 1 Capsule (500 mg) by mouth once daily. 0 3 Active CPAPIndications: AMIE (obstructive sleep apnea) CPAP machine for home use at pressure 10-14 cmw, full face mask x1/3month with a full face cushion x1/mo 1 Each 11 3 Active Active Problems Problem Noted Date Diagnosed Date Polycythemia vera 05/07/2023 Acute ischemic stroke 11/13/2021 Acquired deafness of left ear 05/04/2021 Overview (05/04/2021): Acute onset, 2017 Sensorineural hearing loss, bilateral 02/21/2013 AMIE 2006, AHI-13 01/11/2009 Coronary atherosclerosis of unspecified type of vessel, [place] or graft 11/07/2007 Pure hypercholesterolemia 11/07/2007 Essential hypertension 11/07/2007 Immunizations Immunization Administration Dates Next Due Cholera (Injectable) 05/07/1996 Hepatitis A (Adult) 06/17/2003,04/28/1996 Hepatitis B (Adult) 01/13/2005,04/01/2004,2002 Td (Age >=7 Years) 06/17/2003 Typhoid (injectable) 06/17/2003 Yellow Fever 06/17/2003 Family History Medical History Relation Name Comments Heart Disease Brother Other Father aortic aneurysm Relation Name Status Comments Brother Father Mother Alive age 94 Social History Tobacco Use Types Packs/Day Years Used Date Smoking Tobacco: Former Cigarettes Q uit: 10/31/2007 Smokeless Tobacco: Never Tobacco Cessation:Counseling Given: Yes Alcohol Use Standard Drinks/Week Comments Yes 0 (1 standard drink = 0.6 oz pur e alcohol) occasional Social Connections Answer Date Recorded Frequency of Communication with Friends and Fami ly Not on file 07/23/2021 Financial Resource Strain Answer Date R ecorded Difficulty of Paying Living Expenses Not on file 07/23/2021 Difficulty of Paying Living Expenses Not on file 07/23/2021 Sex and Gender Information Value Date Recorded Sex Assigned at Not on file Legal Sex Male 6:23 AM ETCH OPERATOR SEMICONDUCTOR WAFERS Gender Identity Not on file Sexual Orientation Not on file Obstetrics History Last Filed Vital Signs Vital Sign Reading Time Taken Comments Blood Pressure 127/82 05/07/2023 1:37 PM CDT Pulse 60 05/07/2023 1:37 PM CDT Temperature 37.2 C (98.9 F) 11/14/2021 12:10 PM CDT Respiratory Rate 18 11/14/2021 12:1 0 PM CDT Oxygen Saturation 98% 05/07/2023 1:37 PM CDT Inhaled Oxygen Concentration - - Weight 109.9 kg (242 lb 3.2 oz) 05/07/2023 1:37 PM CDT Height 180.3 cm (5' 11) 05/07/2023 1:37 PM CDT Body Mass Index 33.78 05/07/2023 1:37 PM CDT Plan of Treatment Upcoming Encounters Date Type Department Care Team (Late st Contact Info) Description 03/10/2025 Cardiac Device Check [facility] [phone] Health Maintenance Due Date Last Done Comments Tdap 1962 Depression screening for age 12+ 1963 Hepatitis C screening for age 18-79 1969 Pneumococcal series for age 50+ (1 of 2 - PCV) 1970 Zoster (shingles) series for age 50+ (1 of 2) 1970 Colonoscopy through age 75 1996 RSV vaccine for adults or pr egnancy (1 - Risk 60-74 years 1-dose series) 2011 Tetanus booster 06/17/2013 06/17/2003 Medicare Wellness for age 65+ 2016 COVID-19 vaccine series ( season) 2024 05/19/2021, 10/21/2020, 09/23/2020 BMI (ht and wt on same day) for age 18+ 05/07/2024 05/07/2023, 05/02/2021 Influenza Vaccine (Season Ended) 2025 Lipids for age 45-75 11/13/2026 11/13/2021 Hepatitis B series for 19+ Completed 01/13, 04/01/2004, 06/17/2003 Procedures Procedure Name Priority Date/Time Associated Diagnosis Comments LIPID PANEL YAS 11/13/2021 4:34 PM CDT from Last 3 Months or Most Recently Relevant to Health Maintenance Results * (ABNORMAL) Lipid Panel (11/13/2021 4:34 PM CDT) CHOLESTEROL,TOTAL 160 100 - 199 mg/dL 11/13/2021 9:22 PM CDT [facility] TRIGLYCERIDES 228(H) <150 mg/dL 11/13/2021 9:22 PM CDT [facility] HDL CHOLESTEROL 44 >40 mg/dL 9:22 PM CDT [facility] NON-HDL CHOLESTEROL 116 <145 mg/dl 11/13/2021 9:22 PM CDT [facility] CHOL/HDL RATIO 3.64 <4.50 11/13/2021 9:22 PM CDT [facility] LDL CHOLESTEROL 70 <=130 mg/dL 11/13/2021 9:22 PM CDT [facility] VLDL CHOLESTEROL 46(H) <=30 mg/dL 11/13/2021 9:22 PM CDT [facility] PROVIDER ORDERED STATUS RANDOM 11/13/2021 9:22 PM CDT [facility] Blood BLOOD SPECIMEN / Unknown Venipuncture / Unknown 11/13/2021 4:34 PM CDT 11/13/2021 4:46 PM CDT us Diego Parada MD CHEMISTRY Final Resul t [facility] [address] [place] [address], from Last 3 Months or Most Recently Relevant to Health Maintenance Additional Health Concerns Infection Onset Date Last Indicated MRSA 12/31/2018 12/31/2018 Insurance [employer] [place] BLUE MR PB ONLY [employer] [place] BLUE HB ONLY MEDICARE PART B HB ONLY MEDICARE PART A HB ONLY Advance Directives * Full Code (Latest Code Status on File) Date Activated Date Inactivated Comments 11/13/2021 9:07 PM 11/14/2021 7:57 PM Question Answer Comments Code Status Discussion: Reviewed Preferences Care Teams Bundle Shaker Relationship Specialty Start Date End Date Holger Isaac MD [address] [place] [phone] PCP - General Family Practice 12/14/21
--- OUTSIDE RECORDS SUMMARY | 2025-01-09 00:34 | XMS_ITS | Encounter Summary ---
Author Organization [facility] Address [address] [place] [address] Care Team Providers Care Chlorine Cells Operator Name Role Phone Elsewhere, Pcp Primary Care Provider Unavailabl e Reason for Visit * Reason Onset Date Comments Med Refill 12/10/2024 Encounter Details Date Type Department Care Team (Late st Contact Info) Description 12/10/2024 Refill Department of Cardiovascular Medicine in [place], [place] [address] [place] [phone] Sundeep Larsen M.D., M.S. [address] [place] [phone] Med Refill Social History Tobacco Use Types Packs/Day Years Used Date Smoking Tobacco: Former Cigarettes 0.3 51.3 0 08/06/1971 - 08/06/2015 Smokeless Tobacco: Never Alcohol Use Standard Drinks/Week Comments Yes 2 (1 standard drink = 0.6 oz pur e alcohol) [facility] Utilities Answer Date Recorded In [...] and Family Twice a week 02/14/2019 Attends [employer] More than 4 times per year [...] and heating? Not hard at all 01/20/2023 [employer] [place] [facility] Occupat ional Health - Occupational Stress [...] your living situation today? I have a [facility] place to live 04/18/2024 Education Answer Date Recorded What is the highest level of school you have completed or the highest degree you have received? Some college, no degree 02/13/2019 Sex and Gender Information Value Date Recorded Sex Assigned at Male 01/07/2018 9:42 AM CDT Legal Sex Male 9:37 AM HEALTH AIDE Gender Identity Male 01/07/2018 9:42 AM CDT Sexual Orientation Straight 01/07/2018 9: 42 AM CDT documented as of this encounter Miscellaneous Notes * Telephone Encounter - Therese Yeh R.N. - 12/10/2024 12:58 PM CDT Images from the original note were not included. Adarsh Schulte was last seen on 10/22/24 for followup on mitral annular lesion. History includes HTN, obesity, ex tobacco use, HLD, STEMI with stents to distal left circ and RCA in 2007, mild-moderate , HFpEF with exercised- induced pulmonary hypertension, AMIE on CPAP, severe mitral annular calcification with mobile 1.3 x 0.4cm lesion, prior embolic stroke in 2021. Recommendations included close monitoring along with continued use of Eliquis and aspirin, followupin 1 year with TTE. Most recent comprehensive metabolic panel drawn 05/26/24 per Care Everywhere: If appropriate, please sign off on Eliquis prescription for this patient. Thank you, Therese WAGNER * Telephone Encounter - Skylar Estrada - 12/10/2024 12:09 PM CDT Nurse review: Unable to pend medication to provider: Requested med found on EHA Exclusion List. Name of Medication: Eliquis Strength: 5 mg Frequency: 1 tab BID Last seen: 10-22-24 Pharmacy: [id number] [place] [address] [facility] [address] documented in this encounter Plan of Treatment Not on file documented as of this encounter Visit Diagnoses Diagnosis Mass Mitral Leaflet Anterior- Primary Stroke Cerebrovascular Accident Personal History documented in this encounter Care Teams Chlorine Cells Operator Relationship Specialty Start Date End Date Elsewhere, Pcp PCP - General Internal Medicine 02/22/24 documented as of this encounter
== END 2025-01-08 07:56 | disposition home or self-care (01) ==
LOC: CT 07:56
PROVIDERS: PCP Family Medicine; Visit Provider Family Medicine
DX: Z12.2 Encounter for screening for malignant neoplasm of respiratory organs (principal); Z87.891 Personal history of nicotine dependence
CPT/HCPCS: 71271

== ENCOUNTER 2025-05-06 08:05 | Outpatient (CLI) | payer MEDICARE, BC, SELFPAY | END 2025-05-06 08:06 | disposition home or self-care (01) | LOC: NFLDREF 05-08 09:23 | PROVIDERS: PCP Family Medicine; Referring Provider Family Medicine; Visit Provider Family Medicine | DX: R73.03 Prediabetes (principal); I25.10 Atherosclerotic heart disease of native coronary artery without angina pectoris; Z12.5 Encounter for screening for malignant neoplasm of prostate | CPT/HCPCS: 80053; 80061; G0103 ==